=== PATIENT | female | born 1995 | race Caucasian/White ===

== ENCOUNTER 2021-11-29 12:07 | Outpatient (CLI) | payer OTHER, SELFPAY ==
--- NOTE | ~2021-11-29 | CT_ITS ---
EXAMINATION: CT brain wo con EXAM DATE: 11/29/2021 12:36 INDICATION: R51.9 -right sided Headache, unspecified . Left eye is blurry. TECHNIQUE: Spiral CT of the head was performed without contrast. Axial, coronal and sagittal images were reviewed. The dose-length product (DLP) for this examination was 605.33 mGy-cm. The exposure w as tailored according to patient size, and iterative reconstruction (ASIR) was used as additional dos e reduction technique. Comparison is made to prior examination from 06/06/2019. FINDINGS: There is no acute intraparenchymal hemorrhage. No evidence of intraparenchymal brain mass lesion. No evidence of acute infarction. There is no mass effect or midline shift. The ventricles are normal in size. There are no extra-axial collections. There are no acute calvarial fractures. T he orbits are unremarkable. Soft tissue is unremarkable. The visualized sinuses and mastoid air petar ls are well aerated. IMPRESSION: 1. Unremarkable head CT examination. Reviewed, dictated and finalized at location B. RIOR DECORATOR
== END 2021-11-29 12:08 | disposition home or self-care (01) ==
LOC: ANHIMG 12:12
PROVIDERS: PCP Family Medicine; Visit Provider Physician Assistant
DX: R51.9 Headache, unspecified (principal); H53.8 Other visual disturbances; R29.810 Facial weakness
CPT/HCPCS: 70450

== ENCOUNTER 2022-01-11 19:55 | Inpatient (IN) | payer OTHER, SELFPAY ==
[2022-01-11] VITALS (7 sets, daily range): BP systolic 111–130; BP diastolic 60–87; PULSE 78–109; RESP 16–20; TEMP 36.1; O2SAT 98–100
--- NOTE | ~2022-01-11 | US_ITS ---
EXAMINATION: US OB <=14 wk fetus w TV DATE: 01/11/2022 22:01 INDICATION: Abnormal vaginal bleeding. First trimester of . TECHNIQUE: Real-time transabdominal and transvaginal pelvic ultrasound was performed. COMPARISON: None. FINDINGS: TRANSABDOMINAL ULTRASOUND: The uterus measures 7.9 x 5.1 x 4.2 cm. TRANSVAGINAL ULTRASOUND: There is no visible intrauterine gestational sac. The endometrial complex me asures 3 mm in thickness. The right ovary measures 3.1 x 3.0 x 2.2 cm. The left ovary measures 3.7 x 3.2 x 2.4 cm. There is a 3.5 x 2.6 x 2.5 cm mass in the left adnexa. There is physiologic free fluid in the pelvis. IMPRESSION: 1. No visible intrauterine gestational sac, which may be normal in early . Spontaneous abor tion and ectopic are not excluded. Serial beta-hCGs are recommended. 2. 3.5 cm mass in left adnexa of uncertain etiology, which may be benign or malignant and could be no rmal bowel. Consider pelvis MRI. Reviewed, dictated and finalized at location A. IMPRESSION: 1. No visible intrauterine gestational sac, which may be normal in early pregn angelic. Spontaneous and ectopic are not excluded. Serial beta- hCGs are recommended. 2. 3.5 cm mass in left adnexa of uncertain etiology, which may be benign or mal ignant and could be normal bowel. Consider pelvis MRI.
--- NOTE | 2022-01-11 20:46 | ED.FEMALEGU ---
HPI - Female Genitourinary General Chief complaint: Vaginal Bleeding <Claudia Lee PA-C - Last Filed: 01/12/22 02:48> Stated complaint: Left pelvic pain, recent miscarry <Claudia Lee PA-C - Last Filed: 01/12/22 02:48> Time Seen by Provider: 01/11/22 20:04 <MANDEEP Barrera Last Filed: 01/12/22 02:48> History of Present Illness HPI Narrative: Patient is a 26-year-old G2, female with history of recent miscarriage who presents for evaluation of sharp left lower quadrant abdominal pain and vaginal bleeding. She states the pain developed suddenly today, is severe in nature, and is unprovoked by any positions or meals. Patient states she had a positive test at the end of November, followed by vaginal bleeding for several days in the beginning of December. She never had an ultrasound to confirm IUP. She is being followed by her ob doctor and getting serial hCG levels, she states that her hCG levels actually increased last week. Her vaginal bleeding stopped until today, when she developed spotting along with her abdominal pain. Additionally reports nausea and lightheadedness. She denies any changes in her stools, fevers, chills. <Claudia Lee PA-C - Last Filed: 01/12/22 02:48> Related Data Home medications: Home Medications Medication Instructions Recorded Confirmed Adults Multivitamin 1 tablet PO DAILY 01/12/22 01/12/22 ergocalciferol (vitamin D2) 1,250 mcg PO WEEKLY 01/12/22 01/12/22 ferrous sulfate 325 mg PO DAILY 01/12/22 01/12/22 <MANDEEP Barrera Last Filed: 01/12/22 02:48> Allergies/Adverse reactions: Allergies Allergy/AdvReac Type Severity Reaction Status Date / Time amoxicillin Allergy Unknown unk Verified 01/12/22 00:44 gluten Allergy Unknown unk Verified 01/12/22 00:44 <MANDEEP Barrera Last Filed: 01/12/22 02:48> Review of Systems Review of Systems: Gen: Denies fevers or chills Eyes: Denies eye pain or visual change ENT: Denies congestion Respiratory: Denies shortness of breath or cough CV: Denies chest pain or palpitations GI: Reports left lower quadrant pain and nausea. Denies emesis or diarrhea : Reports vaginal bleeding. Denies burning, urgency, frequency or hematuria Musculoskeletal: Denies back pain or muscle pain Neuro: Denies numbness, tingling, weakness or focal weakness Skin: Denies rash Except as documented, all other systems reviewed and negative <Claudia Lee PA-C - Last Filed: 01/12/22 02:48> [facility] Family History Family History: Family History Mother Cerebrovascular accident <Claudia Lee PA-C - Last Filed: 01/12/22 02:48> Social History Social History: Social History Years smoked: 2 Smoking status: Former smoker Tobacco type: cigarettes Alcohol intake: current Drinks per week: 0 Substance use: never Substance use type: does not use Gender identity (if verbalized by the patient): Female Spiritual care concerns: No <Claudia Lee PA-C - Last Filed: 01/12/22 02:48> Exam Narrative: APPEARANCE: Uncomfortable appearing. Head: normocephalic and atraumatic. EYES: PERRLA/EOMI, conjunctivae clear NOSE: No nasal drainage EARS: External ear normal in appearance THROAT: Oropharynx is clear. Mucous membranes are moist. NECK: Supple. No adenopathy, no masses. RESPIRATORY: Airway patent, respirations nonlabored. Clear to auscultation bilaterally, no rales, rhonchi, wheezing. CARDIOVASCULAR: Tachycardic. Regular rhythm without murmurs, rubs, or gallops. ABDOMINAL: Tender to palpation in left lower quadrant. No rebound tenderness or guarding. Normoactive bowel sounds. MUSCULOSKELETAL: Extremities are warm and well-perfused. Moves all extremities well. No edema. NEURO: Normal speech. No focal neurologic deficits. SKIN:
[2022-01-11 20:53] LABS: Hematocrit 35.9 % (37.0-47.0); Hemoglobin 10.7 g/dL (12.0-15.0)
[2022-01-11 21:51] LABS: Beta HCG Quantitative 196.35 mIU/ML
[2022-01-11] MEDS: ONDANSETRON INJ 4 MG/2 ML VIAL IV PUSH (22:00)
[2022-01-11] MEDS: MORPHINE SULFATE (*CRX) 4 MG/ML INJ IV PUSH (22:47)
--- NOTE | 2022-01-11 23:19 | PC.NURSE ---
Assumed care of pt at this time, report received from Theodora COHEN
[2022-01-11] MEDS: SODIUM CHLORIDE 0.9% IV 1,000 ML 999 ML IV CONT (23:52)
[2022-01-12] VITALS (9 sets, daily range): BP systolic 92–127; BP diastolic 48–73; PULSE 58–98; RESP 14–21; TEMP 36.2–36.4; O2SAT 94–100; BMI 37.6
--- NOTE | 2022-01-12 00:10 | PC.NURSE ---
Report to NOEL Portillo on medical.
--- NOTE | 2022-01-12 00:31 | ADMGEN ---
This patient, Hallie Lim, was admitted to Medical Room 248-. Patient/family oriented to hospital policies and general routines including ID bracelet, bed and alarms, visiting hours, pain management, procedures, bathroom and other care routines, personal items, smoking policy, room service/diet, and visiting hours. Information on how to activate the Rapid Response Team has been discussed. Patient/Family are encouraged to report perceived risks to care and to ask questions if they do not understand what they are told or what they should do.
[2022-01-12 01:47] LABS: SARS-CoV-2 RNA PCR Negative
[2022-01-12] MEDS: MORPHINE SULFATE (*CRX) 4 MG/ML INJ IV PUSH (02:26)
--- NOTE | 2022-01-12 06:42 | PM.IMHP ---
H&P: HPI History of Present Illness Date/Time: 01/12/22 06:42 26-year-old 2 para 1 seen through the ER with with expected to be a left-sided ectopic . She had had none normal rising HCGs consistent with suspected SAB. She however had left lower quadrant pain came through the ER an ultrasound reveals a possible left-sided ectopic . Chief Complaint: Left-sided pelvic pain Review of Systems Review of Systems: All systems reviewed & are unremarkable except as noted in HPI and below PMFSH Family History Family History Mother Cerebrovascular accident Social History Social History Years smoked: 2 Smoking status: Former smoker Tobacco type: cigarettes Alcohol intake: current Drinks per week: 0 Substance use: never Substance use type: does not use Gender identity (if verbalized by the patient): Female Spiritual care concerns: No Meds Home Medications and Allergies Home Medications Medication Instructions Recorded Confirmed Type Adults Multivitamin 1 tablet PO DAILY 01/12/22 01/12/22 History ergocalciferol (vitamin D2) 1,250 mcg PO WEEKLY 01/12/22 01/12/22 History ferrous sulfate 325 mg PO DAILY 01/12/22 01/12/22 History Allergies Allergy/AdvReac Type Severity Reaction Status Date / Time amoxicillin Allergy Unknown unk Verified 01/12/22 00:44 gluten Allergy Unknown unk Verified 01/12/22 00:44 Vital Signs Vital Signs - 24 hr 01/11/22 19:58 01/11/22 22:02 01/11/22 22:16 Temperature 97.0 F L Pulse Rate 109 H 78 86 Respiratory Rate 20 18 Blood Pressure 130/87 125/78 127/72 Pulse Oximetry 99 100 100 01/11/22 22:31 01/11/22 22:45 01/11/22 22:46 Temperature Pulse Rate 87 88 Respiratory Rate 18 16 Blood Pressure 119/69 114/60 Pulse Oximetry 100 99 99 01/11/22 23:54 01/12/22 00:38 01/12/22 03:40 Temperature 97.5 F L 97.3 F L Pulse Rate 91 98 76 Respiratory Rate 16 18 18 Blood Pressure 111/74 127/73 100/48 L Pulse Oximetry 98 99 100 Exam Const: General: no acute distress Eyes: General: appearance normal, both eyes and all related structures Neck: Neck: supple and no JVD Thyroid: thyroid normal Resp: Effort & Inspection: normal respiratory effort Auscultation: clear to auscultation bilaterally Cardio: Rate: regular rate Rhythm: regular rhythm GI: Inspection: non-distended GI Palp: Yes Soft to palpation, No Tenderness to palpation present (GI) and No Guarding due to palpation present (GI) Auscultation: normal bowel sounds : Speculum Exam - Vagina: normal appearance of the vagina Speculum Exam - Cervix: normal appearance of the cervix Bimanual exam- vagina & uterus: uterine shape normal Bimanual Exam- Adnexa, other: Adnexal mass present on the left Skin: General skin exam: no rashes or lesions noted Extrem: General: normal to inspection and no edema Psych: Mental Status: mental status grossly normal Affect: normal affect H&P: Results Labs Labs: Short CBC 01/11/22 Range/Units 20:48 Hgb 10.7 L (12.0-15.0) g/dL Hct 35.9 L (37.0-47.0) % Assessment and Plan Additional Plan Impression: Suspected left ectopic Plan: Laparoscopic left salpingostomy with possible left salpingectomy
--- NOTE | 2022-01-12 06:44 | WPDHPUPDATE1 ---
History and Physical Update Update Date/Time: 01/12/22 06:44 History and Physical has been reviewed, including an updated exam of the patient. There are NO changes in the patient's condition. Risks, benefits, and alternatives have been discussed and questions answered. Patient agrees to proceed with procedure.
--- NOTE | 2022-01-12 06:44 | WPDANESEPP ---
Anes - Eval Pre Procedure Procedure: Diagnostic Laparoscopy Date/Time: 01/12/22 06:44 Surgeon: Milly Ovalles Pre Op Diagnosis: Concern for Ectopic Patient Data Age: 26 Gender: F Height: 1.63 m Weight: 99.5 kg Last Vital Signs Temp 97.3 F L 01/12/22 03:40 Pulse 76 01/12/22 03:40 Resp 18 01/12/22 03:40 BP 100/48 L 01/12/22 03:40 Pulse Ox 100 01/12/22 03:40 Allergies Allergy/AdvReac Type Severity Reaction Status Date / Time amoxicillin Allergy Unknown unk Verified 01/12/22 00:44 gluten Allergy Unknown unk Verified 01/12/22 00:44 Home Medications Medication Instructions Recorded Confirmed Type Adults Multivitamin 1 tablet PO DAILY 01/12/22 01/12/22 History ergocalciferol (vitamin D2) 1,250 mcg PO WEEKLY 01/12/22 01/12/22 History ferrous sulfate 325 mg PO DAILY 01/12/22 01/12/22 History hydrocodone-acetaminophen 1 tablet PO Q4H PRN #30 tablet 01/12/22 Rx Laboratory Tests 01/11/22 01/11/22 01/11/22 20:48 20:48 21:19 Hgb 10.7 g/dL L g/dL (12.0-15.0) Hct 35.9 % L % (37.0-47.0) Beta HCG, Quant 196.35 mIU/ML mIU/ML SARS-CoV-2 RNA (RT-PCR) Blood Type A Positive Antibody Screen Negative Screen Not Reportable Baby's Blood Type Not Reportable Baby's BETTY Not Reportable Doses of RhIg Required 0 01/12/22 01:04 Hgb Hct Beta HCG, Quant SARS-CoV-2 RNA (RT-PCR) Negative Blood Type Antibody Screen Screen Baby's Blood Type Baby's BETTY Doses of RhIg Required Patient hx anesthesia problems: none Family hx anesthesia problems: none Results Review: All pre-operative results and documents have been reviewed as part of the pre-operative evaluation. [facility] Past Medical History Medical History Abnormal vaginal bleeding Anxiety History of bronchitis History of GI bleed History of smoking for 1-2 years HSV-2 (herpes simplex virus 2) infection Morbid obesity Surgical History Surgical History History of appendectomy Family History Family History Mother Cerebrovascular accident Social History Social History Years smoked: 2 Smoking status: Former smoker Tobacco type: cigarettes Alcohol intake: current Drinks per week: 0 Substance use: never Substance use type: does not use Gender identity (if verbalized by the patient): Female Spiritual care concerns: No Exam Day of Procedure 01/12/22 06:44 Patient weight: morbidly obese Heart: regular rate and rhythm Lungs: clear to auscultation Airway: Mallampati scale class II Neurological: alert and oriented
[2022-01-12] MEDS: LACTATED RINGERS 1,000 ML 30 ML IV CONT ×2 (07:15→08:52)
--- NOTE | 2022-01-12 07:32 | WPDANESEFPP ---
Anes - Eval Final PreProcedure Day of Procedure 01/12/22 07:32 Patient weight: obese Heart: regular rate and rhythm Lungs: clear to auscultation Airway: Mallampati scale class II Neurological: alert and oriented Last oral intake: >/= 8 hours ASA classification: II Emergent: no Anesthetic plan: proceed Anesthesia type and monitoring: general ETT and standard monitoring Results Review: All pre-operative results and documents have been reviewed as part of the pre-operative evaluation. Informed Consent: The patient's anesthetic plan and its attendant risks and benefits were discussed with the patient/family/POA. Questions were solicited and answers provided to the satisfaction of the patient/family/POA.
--- NOTE | 2022-01-12 08:24 | PM.DS ---
DS: Admitting Diagnosis Discharge Date 01/12/2022 Admitting Diagnosis Ectopic DS: Summary Hospital Course Hospital Course: The patient was admitted with abdominal pain and left-sided pelvic pain. She was admitted through the ER and ultrasound showed a possible ectopic however there was no free fluid. She was watched through the evening and her pain continued. She underwent laparoscopic left salpingectomy and the a.m. of 01/12/2022. Please see the operative report for full details. Her hospital course was unremarkable. She remained afebrile. She was up, voiding without difficulty, ambulating, eating a regular diet and generally without complaints. Time Spent with Patient Time attestation: Total time spent providing and/or coordinating discharge services: Exam Const: General: no acute distress Eyes: General: appearance normal, both eyes and all related structures Neck: Neck: supple and no JVD Thyroid: thyroid normal Resp: Effort & Inspection: normal respiratory effort Auscultation: clear to auscultation bilaterally Cardio: Rate: regular rate Rhythm: regular rhythm GI: Inspection: non-distended GI Palp: Yes Soft to palpation, No Tenderness to palpation present (GI) and No Guarding due to palpation present (GI) Auscultation: normal bowel sounds : General: Yes bladder normal to palpation External Female Exam: normal external appearance Speculum Exam - Vagina: normal vaginal discharge and No vaginal bleeding Speculum Exam - Cervix: nontender Bimanual exam- vagina & uterus: bladder normal to palpation and No Cervical tenderness present OB/external & speculum: No vaginal bleeding Skin: General skin exam: no rashes or lesions noted Extrem: General: normal to inspection and no edema Psych: Mental Status: mental status grossly normal Affect: normal affect DS: Data Data Completed and Pending Pending studies at discharge: Pending at discharge 01/12/22 08:09 Surgical [PTH] Routine Labs on day of discharge: Labs from last 24 hours 01/12/22 01/11/22 01/11/22 01:04 21:19 20:48 Hgb Hct Beta HCG, Quant 196.35 SARS-CoV-2 RNA (RT-PCR) Negative Blood Type A Positive Antibody Screen Negative Screen Not Reportable Baby's Blood Type Not Reportable Baby's BETTY Not Reportable Doses of RhIg Required 0 01/11/22 20:48 Hgb 10.7 L Hct 35.9 L Beta HCG, Quant SARS-CoV-2 RNA (RT-PCR) Blood Type Antibody Screen Screen Baby's Blood Type Baby's BETTY Doses of RhIg Required Discharge Plan Discharge Attending physician on discharge: Yonny Kam Discharging Clinician: Yonny Kam Patient Disposition: Home, Self-Care Activity: may shower, may drive after 2 weeks and pelvic rest Diet: heart healthy Wound Care Instructions: follow printed instructions Patient Instructions: Antibiotic Form Stand Alone Forms: General Discharge Information Follow-up/Referrals: Yonny Kam MD [Physician] - Discharge Medications: New hydrocodone-acetaminophen 5-325 mg tablet 1 tablet PO Q4H PRN (Reason: pain) Qty: 30 RF: 0 No Action Adults Multivitamin 1 tablet PO DAILY RF: 0 ferrous sulfate 325 mg (65 mg iron) tablet 325 mg PO DAILY RF: 0 ergocalciferol (vitamin D2) 1,250 mcg (50,000 unit) capsule 1,250 mcg PO WEEKLY RF: 0 Date of admission: 01/11/22 23:22 Primary Care Provider: Manas Reza Admitting Provider: Yonny Kam Attending physician on admission: Yonny Kam Condition: Stable
--- NOTE | 2022-01-12 08:26 | W.PM.PROC2 ---
Procedure Note - Detailed Date of Procedure 01/12/22 Pre-op Diagnosis Concern for Ectopic Post-op Diagnosis Same Procedure Performed Laparoscopic left salpingectomy Surgeon Yonny Ovalles MD Anesthesia General Indications This is a 26-year-old 2 para 1 who was admitted through the ER with suspected ectopic . Findings Normal-appearing uterus and ovaries bilaterally. The tube on the left at the distal half toward the fimbriated in contained an ectopic . About 50cc of clots were seen in the pelvis as well. Description of Procedure The patient is prepped draped in the normal sterile fashion placed in the dorsal lithotomy position. Under excellent general trach anesthesia weighted speculum placed in posterior fornix vagina. Anterior lip of the cervix grasped with a single-tooth tenaculum the Villegas's cannula inserted the cervix. These were attached to the single-tooth tenaculum to be used for uterine manipulation. Bladder was then emptied of [id number] of clear urine. The weighted speculum was removed the gloves were changed. An infraumbilical incision made the Veress needle passed in the abdomen. Abdomen filled with CO2 gas [id number]. The 5mm trocar advanced under direct visualization assuring no injury. The patient was placed in Trendelenburg and a suprapubic incision made. The 5mm trocar advanced under direct visualization assuring no injury. The left lower quadrant incision made the 5mm trocar advanced under direct visualization assuring no injury. The above findings were seen then the clots were suctioned away. In the distal half of the left fallopian tube appeared to be the ectopic . The end of the tube was grasped and a linear incision made with monopolar cautery the exposing the ectopic . This was picked out and sent for pathology. Irrigation was undertaken no clear the tube appeared dry after irrigating. No other abnormalities were seen in the lower sites removed. The gas removed from the abdomen the upper sites removed. The incisions closed with 4-0 Monocryl and glue. The patient went to recovery in satisfactory condition. All sponge, needle, instrument counts were correct. There were no immediate complications Estimated Blood Loss 25 Urine Output 500 Drains No Packing No Pathology Yes Complications No immediate complications Condition Stable Disposition PACU
[2022-01-12] MEDS: fentaNYL CITRATE INJ (*CRX) 100 MCG/2 ML VIAL 25 MCG IV PUSH ×4 (08:36→09:13)
[2022-01-12] MEDS: HYDROcodone/acetaminophen (*CRX) 5-325 MG TABLET 1 TAB PO ×2 (10:00→13:58)
[2022-01-13 12:15] LABS: Rapid Plasma Reagin Non-Reactive (NonReactive)
--- NOTE | 2022-01-16 07:44 | P.DS_ITS ---
DS: Admitting Diagnosis Discharge Date 01/12/22 Admitting Diagnosis Ectopic DS: Summary Hospital Course Hospital Course: the patient was admitted with suspected ectopic . She underwent unilateral salpingotomy. Her hospital course was unremarkable. She remained afebrile. She was up, voiding without difficulty, ambulating, generally without lints.comp Time Spent with Patient Time attestation: Total time spent providing and/or coordinating discharge services: Exam Const: General: no acute distress Eyes: General: appearance normal, both eyes and all related structures Neck: Neck: supple and no JVD Thyroid: thyroid normal Resp: Effort & Inspection: normal respiratory effort Auscultation: clear to auscultation bilaterally Cardio: Rate: regular rate Rhythm: regular rhythm GI: Inspection: non-distended GI Palp: Yes Soft to palpation, No Tenderness to palpation present (GI) and No Guarding due to palpation present (GI) Auscultation: normal bowel sounds : General: Yes bladder normal to palpation External Female Exam: normal external appearance Speculum Exam - Vagina: normal vaginal discharge and No vaginal bleeding Speculum Exam - Cervix: nontender Bimanual exam- vagina & uterus: bladder normal to palpation and No Cervical tenderness present OB/e xternal & speculum: No vaginal bleeding Skin: General skin exam: no rashes or lesions noted Extrem: General: normal to inspection and no edema Psych: Mental Status: mental status grossly normal Affect: normal affect DS: Data Data Completed and Pending Completed studies during hospitalization: Pending at discharge 01/12/22 08:09 Surgical [PTH] Routine Discharge Plan Discharge Attending physician on discharge: Yonny Kam Consulting providers: Claudia Lee ; Juanito Paredes V. Discharging Clinician: Yonny Kam Patient Disposition: Home, Self-Care Activity: may shower, may drive after 2 weeks and pelvic rest Diet: heart healthy Wound Care Instructions: follow printed instructions Patient Instructions: Antibiotic Form Stand Alone Forms: General Discharge Information, Work/School Release IP Follow-up/Referrals: Yonny Kam MD [Physician] - Discharge Medications: New hydrocodone-acetaminophen 5-325 mg tablet 1 tablet PO Q4H PRN (Reason: pain) Qty: 30 RF: 0 Continued Adults Multivitamin 1 tablet PO DAILY RF: 0 ferrous sulfate 325 mg (65 mg iron) tablet 325 mg PO DAILY RF: 0 ergocalciferol (vitamin D2) 1,250 mcg (50,000 unit) capsule 1,250 mcg PO WEEKLY RF: 0 Date of admission: 01/11/22 23:22 Primary Care Provider: Manas Reza Admitting Provider: Yonny Kam Attending physician on admission: Yonny Kam Condition: Stable
== END 2022-01-12 15:00 | disposition home or self-care (01) | DRG 819 ==
LOC: ANHED 20:15 → ANH2MED 23:37
PROVIDERS: Physician Assistant; Admitting Provider Obstetrics & Gynecology; Emergency Provider Emergency Medicine; PCP Family Medicine; Visit Provider Obstetrics & Gynecology
PROC: 10T24ZZ Resection of Products of Conception, Ectopic, Percutaneous Endoscopic Approach (ICD-10-PCS; CPT 49320; principal; 2022-01-12 08:00)
DX: O00.102 Left tubal pregnancy without intrauterine pregnancy (principal); Z20.822 Contact with and (suspected) exposure to COVID-19; E66.01 Morbid (severe) obesity due to excess calories; Z68.37 Body mass index [BMI] 37.0-37.9, adult; Z90.49 Acquired absence of other specified parts of digestive tract; Z87.891 Personal history of nicotine dependence
CPT/HCPCS: 36415; 76801; 76817; 84702; 85014; 85018; 85461; 86592; 88305; 96365; 96375; 99285; A9270; C9803; J0131; J0330; J2250; J2270; J2405; J2704; J2710; J3010; J7030; J7120; U0003; U0005

== ENCOUNTER 2022-01-27 16:36 | Outpatient (CLI) | payer OTHER, SELFPAY ==
[2022-01-27 17:22] LABS: Beta HCG Quantitative 48.34 mIU/ML
== END 2022-01-27 16:37 | disposition home or self-care (01) ==
LOC: ANHLAB 16:39
PROVIDERS: PCP Family Medicine; Visit Provider Obstetrics & Gynecology
DX: O00.90 Unspecified ectopic pregnancy without intrauterine pregnancy (principal)
CPT/HCPCS: 36415; 84702

== ENCOUNTER 2023-01-20 08:30 | Outpatient (CLI) | payer BC, SELFPAY ==
[2023-01-20 08:58] LABS: Hematocrit 40.6 % (37.0-47.0); Hemoglobin 12.7 g/dL (12.0-15.0)
== END 2023-01-20 08:31 | disposition home or self-care (01) ==
LOC: ANHSURGERY 08:36
PROVIDERS: Anesthesiology; PCP Family Medicine; Visit Provider Obstetrics & Gynecology
DX: Z01.812 Encounter for preprocedural laboratory examination (principal); R10.2 Pelvic and perineal pain; D64.9 Anemia, unspecified
CPT/HCPCS: 36415; 85014; 85018; 86850; 86900; 86901

== ENCOUNTER 2023-01-23 00:28 | Day surgery (SDC) | payer BC, SELFPAY ==
[2023-01-15 11:43] VITALS: BMI 37.8
--- NOTE | 2023-01-15 11:50 | PC.NURSE ---
Report to the Outpatient Waiting Room, entrance under the green pavilion located off [facility], at time 1:00 on date 01/23/23. Planned Procedure Time: 3:00. Time changes happen often and if your time is changed the preop area will call you the afternoon before. - You and your visitor will be asked to self-screen and do not enter if you have any COVID symptoms. - A mask is optional within the hospital at this time. Patients may have clear liquids (water, carbonated beverages, clear teas, apple juice) until 3 hours prior to surgery (12:00) with a maximum of 20 ounces. - No food from midnight until time of surgery Take the following medications with a SIP of water the morning of surgery: NONE DO NOT STOP ANY OF YOUR OTHER PRESCRIPTION MEDICATIONS PRIOR TO SURGERY EXCEPT THE FOLLOWING Medications to discontinue per physician: VITAMINS Date to take last dose: 01/19/23 Please no make-up, nail azeri, hairspray, perfume, deodorant, or body powder the day of surgery. No jewelry (including any body piercings) or valuables the day of surgery, leave them at home. Please take a shower or bath the night before, or the morning of, surgery with an antibacterial soap. Wear comfortable, loose fitting clothing. - Jewelry must be removed prior to entering the operating room. Rings and piercings that are not removed may be cut off. - The hospital will not accept responsibility for valuables. - Please leave all valuables, including medications, at home the day of surgery. If you are going home after surgery, a licensed flag car driver must drive you home. - NO public transportation without another adult if you receive anesthesia. - We recommend that an adult stay with you for 24 hours following discharge. - We also recommend that you do not drive, make important decision, drink alcoholic beverages, or take any drugs that were not prescribed by your health care provider for at least 24 hours after your discharge time. Follow any additional instructions given to you from your surgeon. If you or anyone in your household have experienced Covid symptoms in the past week, please notify your surgeon or the nurse liaison at the phone number below for possible testing. Telephone instructions given to PT Ned STACK and asked if any additional questions and then verbalized understanding. Patient advised to call surgeon office or pre surgery nurse liaison [phone] if any additional questions.
--- NOTE | 2023-01-20 07:51 | PM.IMHP ---
H&P: HPI History of Present Illness Date/Time: 01/20/23 07:51 Chief Complaint: Pelvic pain Narrative: 27-year-old female admitted for laparoscopy secondary to chronic and severe pelvic pain. Ultrasound was unhelpful. She has negative cultures as well. Risks and benefits of the procedure reviewed including but not exclusive of , aspiration pneumonia, bleeding, transfusion, perforation injury to bowel, bladder, ureters, or other internal organs with need for open laparotomy. She received the ACOG handout entitled laparoscopy. She had all questions answered. She asked to proceed PMFSH Past Medical History Medical History Abnormal vaginal bleeding Anxiety History of bronchitis History of GI bleed History of smoking for 1-2 years HSV-2 (herpes simplex virus 2) infection Morbid obesity Surgical History Surgical History History of appendectomy Family History Family History Mother Cerebrovascular accident Social History Social History Years smoked: 0.5 Smoking status: Former smoker Tobacco type: cigarettes Smoking end date: 09/28/17 Alcohol intake: current Drinks per week: 0 Alcohol use details: VERY RARE Substance use: never Substance use type: does not use Living arrangements: with family Occupation/Education: occupation Gender identity (if verbalized by the patient): Female Spiritual care concerns: No Meds Home Medications and Allergies Home Medications Medication Instructions Recorded Confirmed Type melatonin 10 mg chewable tablet 10 mg PO HS 01/15/23 01/15/23 History Allergies Allergy/AdvReac Type Severity Reaction Status Date / Time amoxicillin Allergy Unknown Vomiting Verified 01/15/23 11:42 gluten Allergy Unknown Other Verified 01/15/23 11:42 Exam Const: General: cooperative, healthy appearing and comfortable Nutritional Appearance: average body habitus Orientation/consciousness: oriented to person, oriented to place and oriented to time HENMT: Head: normal to inspection Resp: Effort & Inspection: normal respiratory effort Cardio: Rate: regular rate Rhythm: regular rhythm Heart sounds: S1 normal heart sound present and S2 normal heart sound present GI: Inspection: normal to inspection : External Female Exam: normal external appearance Speculum Exam - Vagina: normal appearance of the vagina Speculum Exam - Cervix: normal appearance of the cervix Bimanual exam- vagina & uterus: uterine size normal and Uterine tenderness Bimanual Exam- Adnexa, other: tender Assessment and Plan Assessment and plan (1) Pelvic pain: Code(s): R10.2 - Pelvic and perineal pain Status: Acute Plan Diagnostic laparoscopy
[2023-01-23] VITALS (8 sets, daily range): BP systolic 101–123; BP diastolic 51–77; PULSE 58–100; RESP 12–18; TEMP 36.3–36.4; O2SAT 97–100; BMI 36.8
--- NOTE | 2023-01-23 06:02 | WPDHPUPDATE1 ---
History and Physical Update Update Date/Time: 01/23/23 06:02 History and Physical has been reviewed, including an updated exam of the patient. There are NO changes in the patient's condition. Risks, benefits, and alternatives have been discussed and questions answered. Patient agrees to proceed with procedure.
[2023-01-23] MEDS: LACTATED RINGERS 1,000 ML 30 ML IV CONT (13:05)
[2023-01-23] MEDS: KETOROLAC 15 MG/ML VIAL (*BKC) IV PUSH (13:13)
[2023-01-23] MEDS: ACETAMINOPHEN 500 MG TABLET 1000 MG PO (13:13)
--- NOTE | 2023-01-23 13:22 | WPDHPUPDATE1 ---
History and Physical Update Update Date/Time: 01/23/23 13:22 History and Physical has been reviewed, including an updated exam of the patient. There are NO changes in the patient's condition. Risks, benefits, and alternatives have been discussed and questions answered. Patient agrees to proceed with procedure. ad possible destruction of lesions
--- NOTE | 2023-01-23 14:09 | P.PNAN_ITS ---
Anes - Initial Pre Proc Eval Procedure: Operation Date: 01/23/23 14:30 Proposed Procedures p Diagnostic Laparoscopy with Possible Destruction of Lesion - Yonny Ovalles MD Date/Time: 01/23/23 14:09 Surgeon: Yonny Ovalles MD Pre Op Diagnosis: pelvic pain Patient Data Age: 27 Gender: F Height: 1.63 m Weight: 99.8 kg Allergies Allergy/AdvReac Type Severity Reaction Status Date / Time amoxicillin Allergy Unknown Vomiting Verified 01/23/23 12:51 gluten Allergy Unknown Other Verified 01/23/23 12:51 Home Medications Medication Instructions Recorded Confirmed Type melatonin 10 mg chewable tablet 10 mg PO HS 01/15/23 01/15/23 History hydrocodone 5 mg-acetaminophen 325 1 tablet PO Q4H PRN pain #20 tabs 01/23/23 Rx mg tablet Patient hx anesthesia problems: none Family hx anesthesia problems: none Results Review: All pre-operative results and documents have been reviewed as part of the pre- operative evaluation. [facility] Past Medical History Medical History Abnormal vaginal bleeding Anxiety History of bronchitis History of GI bleed History of smoking for 1-2 years HSV-2 (herpes simplex virus 2) infection Morbid obesity Surgical History Surgical History History of appendectomy Family History Family History Mother Cerebrovascular accident Social History Social History Years smoked: 0.5 Smoking status: Former smoker Tobacco type: cigarettes Smoking end date: 09/28/17 Alcohol intake: current Drinks per week: 0 Alcohol use details: VERY RARE Substance use: never Substance use type: does not use Living arrangements: with family Occupation/Education: occupation Gender identity (if verbalized by the patient): Female Spiritual care concerns: No Anes - Eval Final PreProcedure Day of Procedure 01/23/23 14:09 Patient weight: obese Heart: regular rate and rhythm Lungs: clear to auscultation Airway: Mallampati scale class II Neurological: alert and oriented Last oral intake: >/= 8 hours ASA classification: II Emergent: no Anesthetic plan: proceed Anesthesia type and monitoring: general ETT and standard monitoring Results Review: All pre-operative results and documents have been reviewed as part of the pre- operative evaluation. Informed Consent: The patient's anesthetic plan and its attendant risks and benefits were discussed with the patient/family/POA. Questions were solicited and answers provided to the satisfaction of the patient/family/POA.
--- NOTE | 2023-01-23 15:21 | P.OP_ITS ---
Procedure Note - Detailed Date of Procedure 01/23/23 Pre-op Diagnosis pelvic pain Post-op Diagnosis Other ( endometriosis) Procedure Performed laparoscopic destruction of endometriosis Surgeon Yonny Ovalles MD Anesthesia General Indications this 27-year-old female with pelvic pain Findings normal-appearing uterus ovaries and tubes. Two small blistered spots of endometriosis along left and right uterosacral Description of Procedure patient was prepped draped in normal sterile fashion placed in dorsal lithotomy position. Under excellent general trach anesthesia weighted speculum placed in posterior fornix vagina. Anterior lip of the cervix grasped with single-tooth tenaculum. Villegas's cannula inserted the cervix and attached to the single- tooth. This was to be used later later for uterine manipulation. After emptying the bladder clear urine the weighted speculum was removed and gloves were changed. Supraumbilical incision made the Veress needle passed in the abdomen. Abdomen filled with CO2 gas to 15mm Hg. 5Mm trocar advanced in the abdomen. Downside visualized no injury seen. Gas reattached the patient placed in Trendelenburg. Suprapubic incision made the 5mm trocar advanced under direct visualization assuring no injury. Visualization of the pelvis showed no abnormality short of the small areas of endometriosis. These were cauterized at 35 w per 2nd with monopolar cautery. Irrigation undertaken and photo documentation undertaken. The lower site removed. The gas removed from the abdomen. The upper site removed. The incisions closed with 4-0 Monocryl and glue. Patient went to recovery in satisfactory condition. All sponge, needle, instrument counts were correct. There were no immediate complications Estimated Blood Loss 5 Drains No Packing No Pathology None sent Complications No immediate complications Condition Stable Disposition PACU
[2023-01-23] MEDS: fentaNYL CITRATE INJ (*CRX) 100 MCG/2 ML VIAL 25 MCG IV PUSH ×4 (15:49→15:58)
[2023-01-23] MEDS: oxyCODONE HCL (*CRX) 5 MG TAB IR PO (16:41)
== END 2023-01-23 17:30 | disposition home or self-care (01) ==
PROVIDERS: PCP Family Medicine; Visit Provider Obstetrics & Gynecology
PROC: (CPT 49320; principal; 2023-01-23 14:30)
DX: N80.3C3 Endometriosis of bilateral uterosacral ligament(s), unspecified depth (principal); R10.2 Pelvic and perineal pain; B00.9 Herpesviral infection, unspecified; Z87.891 Personal history of nicotine dependence; E66.9 Obesity, unspecified; Z68.36 Body mass index [BMI] 36.0-36.9, adult
CPT/HCPCS: 58662; A9270; J1100; J1885; J2001; J2250; J2405; J2704; J2710; J3010; J7120

== ENCOUNTER 2023-10-30 01:25 | Day surgery (SDC) | payer BC, SELFPAY ==
[2023-10-29 09:20] VITALS: BMI 41.2
--- NOTE | 2023-10-29 09:25 | PC.NURSE ---
Report to the Outpatient Waiting Room, entrance under the green pavilion located off [facility], at time 1330 on date 10/30/23. Planned Procedure Time: 1530. Time changes happen often and if your time is changed the preop area will call you the afternoon before. - You and your visitor will be asked to self-screen and do not enter if you have any COVID symptoms. - A mask is optional within the hospital at this time. Patients may have clear liquids (water, carbonated beverages, clear teas, apple juice) until 3 hours prior to surgery with a maximum of 20 ounces. - No food from midnight until time of surgery Take the following medications with a SIP of water the morning of surgery: NONE DO NOT STOP ANY OF YOUR OTHER PRESCRIPTION MEDICATIONS PRIOR TO SURGERY ?EXCEPT THE FOLLOWING Medications to discontinue per physician: N/A Date to take last dose: N/A Please no make-up, nail estonian, hairspray, perfume, deodorant, or body powder the day of surgery. No jewelry (including any body piercings) or valuables the day of surgery, leave them at home. Please take a shower or bath the night before, or the morning of, surgery with an antibacterial soap. Wear comfortable, loose fitting clothing. - Jewelry must be removed prior to entering the operating room. Rings and piercings that are not removed may be cut off. - The hospital will not accept responsibility for valuables. - Please leave all valuables, including medications, at home the day of surgery. If you are going home after surgery, a licensed entry driver operator must drive you home. - NO public transportation without another adult if you receive anesthesia. - We recommend that an adult stay with you for 24 hours following discharge. - We also recommend that you do not drive, make important decision, drink alcoholic beverages, or take any drugs that were not prescribed by your health care provider for at least 24 hours after your discharge time. Follow any additional instructions given to you from your surgeon. If you or anyone in your household have experienced Covid symptoms in the past week, please notify your surgeon or the nurse liaison at the phone number below for possible testing. Telephone instructions given to JULIETA STACK and asked if any additional questions and then verbalized understanding. Patient advised to call surgeon office or pre surgery nurse liaison [phone] if any additional questions.
--- NOTE | 2023-10-29 10:53 | P.HP_ITS ---
H&P: HPI History of Present Illness Date/Time: 10/29/23 10:53 Chief Complaint: Bleeding for 2 months Narrative: 27-year-old female para been bleeding for 2 months. She has heavier bleeding which is increased she has laparoscopic history of endometriosis diagnosed a year ago. She continues to bleed irregularly. In this this bleeding is, since August 30. Risks and benefits reviewed of the procedure. She received the ACOG handouts entitled hysteroscopy as well as dilatation curettage. She had all questions answered and asked to proceed PMFSH Past Medical History Medical History Abnormal vaginal bleeding Anxiety History of bronchitis History of GI bleed History of smoking for 1-2 years HSV-2 (herpes simplex virus 2) infection Morbid obesity Surgical History Surgical History History of appendectomy Family History Family History Mother Cerebrovascular accident Social History Social History Years smoked: 0.5 Smoking status: Former smoker Tobacco type: cigarettes Smoking end date: 09/28/15 Alcohol intake: current Drinks per week: 0 Alcohol use details: VERY RARE Substance use: never Substance use type: does not use Living arrangements: with family Occupation/Education: occupation Gender identity (if verbalized by the patient): Female Spiritual care concerns: No Meds Home Medications and Allergies Home Medications Medication Instructions Recorded Confirmed Type medroxyprogesterone 10 mg tablet 10 mg PO DAILY 10/29/23 10/29/23 History Allergies Allergy/AdvReac Type Severity Reaction Status Date / Time amoxicillin Allergy Unknown Vomiting Verified 10/29/23 09:19 gluten Allergy Unknown Other Verified 10/29/23 09:19 Exam Const: General: cooperative, healthy appearing and comfortable Nutritional Appearance: average body habitus Orientation/consciousness: oriented to person, oriented to place and oriented to time Resp: Effort & Inspection: normal respiratory effort Cardio: Rate: regular rate Rhythm: regular rhythm Heart sounds: S1 nor mal heart sound present and S2 normal heart sound present GI: Inspection: normal to inspection : External Female Exam: normal external appearance Speculum Exam - Vagina: normal appearance of the vagina and vaginal bleeding Speculum Exam - Cervix: normal appearance of the cervix Bimanual exam- vagina & uterus: non- tender Bimanual Exam- Adnexa, other: normal adnexae Assessment and Plan Assessment and plan (1) Vaginal bleeding: Code(s): N93.9 - Abnormal uterine and vaginal bleeding, unspecified Status: Acute Plan Hysteroscopy/dilatation and curettage
--- NOTE | 2023-10-30 06:36 | WPDHPUPDATE1 ---
History and Physical Update Update Date/Time: 10/30/23 06:36 History and Physical has been reviewed, including an updated exam of the patient. There are NO changes in the patient's condition. Risks, benefits, and alternatives have been discussed and questions answered. Patient agrees to proceed with procedure.
[2023-10-30] MEDS: LACTATED RINGERS 1,000 ML 30 ML IV CONT ×2 (11:40→13:54)
[2023-10-30] MEDS: ACETAMINOPHEN 500 MG TABLET 1000 MG PO (12:03)
[2023-10-30 12:06] LABS: Hematocrit 37.4 % (37.0-47.0); Hemoglobin 11.6 g/dL (12.0-15.0)
[2023-10-30 12:09] VITALS: BP 114/75; PULSE 101; RESP 16; TEMP 37.1; O2SAT 100; BMI 40.2
--- NOTE | 2023-10-30 12:52 | P.PNAN_ITS ---
Anes - Initial Pre Proc Eval Procedure: Operation Date: 10/30/23 15:30 Proposed Procedures p Hysteroscopy Dilation and Curettage - Yonny Ovalles MD Date/Time: 10/30/23 12:52 Surgeon: Yonny Ovalles MD Pre Op Diagnosis: Excessive Bleeding, Dysmenorrhea Patient Data Age: 27 Gender: F Height: 1.63 m Weight: 106.3 kg Last Vital Signs Temp 37.1 C 10/30/23 12:09 Pulse 101 H 10/30/23 12:09 Resp 16 10/30/23 12:09 BP 114/75 10/30/23 12:09 Pulse Ox 100 10/30/23 12:09 O2 Del Method Room Air 10/30/23 12:09 Allergies Allergy/AdvReac Type Severity Reaction Status Date / Time amoxicillin Allergy Unknown Vomiting Verified 10/29/23 09:19 gluten Allergy Unknown Other Verified 10/29/23 09:19 Home Medications Medication Instructions Recorded Confirmed Type medroxyprogesterone 10 mg tablet 10 mg PO DAILY 10/29/23 10/30/23 History hydrocodone 5 mg-acetaminophen 325 1 tablet PO Q4H PRN pain #14 tabs 10/30/23 Rx mg tablet Laboratory Tests 10/30/23 11:50 Hgb 11.6 L g/dL (12.0-15.0) Hct 37.4 % (37.0-47.0) Patient hx anesthesia problems: none Family hx anesthesia problems: none Results Review: All pre-operative results and documents have been reviewed as part of the pre- operative evaluation. [facility] Past Medical History Medical History Abnormal vaginal bleeding Anxiety History of bronchitis History of GI bleed History of smoking for 1-2 years HSV-2 (herpes simplex virus 2) infection Morbid obesity Surgical History Surgical History History of appendectomy Family History Family History Mother Cerebrovascular accident Social History Social History Years smoked: 0.5 Smoking status: Former smoker Tobacco type: cigarettes Smoking end date: 09/28/15 Alcohol intake: current Drinks per week: 0 Alcohol use details: VERY RARE Substance use: never Substance use type: does not use Living arrangements: with family Occupation/Education: occupation Gender identity (if verbalized by the patient): Female Spiritual care concerns: No Anes - Eval Final PreProcedure Day of Procedure 10/30/23 12:52 Patient weight: morbidly obese Heart: regular rate and rhythm Lungs: clear to auscultation Airway: Mallampati scale class II Neurological: alert and oriented Last oral intake: >/= 8 hours ASA classification: III Emergent: no Anesthetic plan: proceed Anesthesia type and monitoring: general GIVS and standard monitoring Results Review: All pre-operative results and documents have been reviewed as part of the pre- operative evaluation. Informed Consent: The patient's anesthetic plan and its attendant risks and benefits were discussed with the patient/family/POA. Questions were solicited and answers provided to the satisfaction of the patient/family/POA.
[2023-10-30 13:54] VITALS: BP 118/82; PULSE 79; RESP 14; O2SAT 100
[2023-10-30] MEDS: LIDOCAINE HCL 1% LOCAL INJ 20 ML VIAL 10 ML INFILTRATE (13:57)
--- NOTE | 2023-10-30 13:57 | P.OP_ITS ---
Procedure Note - Detailed Date of Procedure 10/30/23 Pre-op Diagnosis Excessive Bleeding, Dysmenorrhea Post-op Diagnosis Same Procedure Performed Hysteroscopy / dilatation curettage Surgeon Yonny Ovalles MD Anesthesia MAC and Local Indications 27-year-old female with 2 months of continued bleeding refractory to medical therapy Findings thickened irregular endometrial tissue Description of Procedure patient was prepped and draped in the normal sterile fashion placed in the dorsal lithotomy position. Under excellent IV sedation weighted speculum placed in posterior fornix vagina. Anterior lip of the cervix grasped with a single- tooth tenaculum. 2.5cc of 1% xylocaine anesthesia placed at 2, 4, 8, 10:00 a.m. of the cervix. Uterus sounded to 8cm. Serial dilatation with fragmented dilators performed followed by passage of the 5mm visualizing of the dye hysteroscope. Thick irregular endometrial tissue was seen. Each fallopian tube os could be seen but no evidence of polyp. Uterus was then scraped over the entire 360? until good grating sound was heard. Instruments withdrawn blood loss estimated at5cc. All sponge, needle, instrument counts were correct. There were no immediate complications Estimated Blood Loss 5 Drains No Packing No Pathology Yes Complications No immediate complications Condition Stable Disposition PACU
[2023-10-30] MEDS: fentaNYL CITRATE INJ (*CRX) 100 MCG/2 ML VIAL 25 MCG IV PUSH ×4 (14:19→14:28)
[2023-10-30 14:20] VITALS: BP 110/71; PULSE 69; RESP 16; O2SAT 96
[2023-10-30 14:30] VITALS: BP 105/65; PULSE 63; RESP 16; O2SAT 94
[2023-10-30 15:00] VITALS: BP 102/63; PULSE 53; RESP 17; O2SAT 100
== END 2023-10-30 15:16 | disposition home or self-care (01) ==
PROVIDERS: PCP Family Medicine; Visit Provider Obstetrics & Gynecology
PROC: 0U5B8ZZ Destruction of Endometrium, Via Natural or Artificial Opening Endoscopic (ICD-10-PCS; CPT 58563; principal; 2023-10-30 15:30)
DX: N93.9 Abnormal uterine and vaginal bleeding, unspecified (principal); N94.6 Dysmenorrhea, unspecified; B00.9 Herpesviral infection, unspecified; Z87.891 Personal history of nicotine dependence; E66.01 Morbid (severe) obesity due to excess calories; Z68.41 Body mass index [BMI] 40.0-44.9, adult
CPT/HCPCS: 58558; 36415; 85014; 85018; 88305; A9270; J2250; J2405; J2704; J3010; J7120

== ENCOUNTER 2025-01-13 11:07 | Outpatient (CLI) | payer BC, SELFPAY ==
--- OUTSIDE RECORDS SUMMARY | 2025-01-13 11:19 | XMS_ITS | Clinical Summary ---
Author Organization [facility] Address [address] [place] [address] Care Team Providers Care Foil Wrapper Name Role Phone Manas Reza MD Primary Care Provider Allergies Active Allergy Reactions Criticality Noted Date Comments Amoxicillin Rash Medium 05/15/2021 Amoxicillin-Pot Clavulanate Rash Medium 05/15/2021 Gluten Other (See comments) Low 05/23/2024 Celiac disease Medications cholecalciferol (VITAMIN D-3) 25 mcg (1,000 unit) tabletIndication s:Vitamin D Deficiency Take 1 tablet (1,000 Units total) by mouth daily 30 tablet 06/01/2024 5 Active folic acid (FOLVITE) 1 mg tabletIndication s:Folate Deficiency Take 1 tablet (1 mg total) by mouth daily 30 tablet 06/01/2024 5 Active Active Problems Problem Noted Date Diagnosed Date NAFLD (nonalcoholic fatty liver disease) 025 Class 3 severe obesity due t o excess calories with serious comorbidity and body mass index (BMI) of 40.0 to 44.9 in adult 10/14/2024 Elevated LFTs 06/10/2024 Allergic rhinitis 07/14/2023 Allergic rhinitis due to pollen 07/14/2023 Angioneurotic edema 07/14/2023 Dyspnea 07/14/2023 Idiopathic urticaria 07/14/2023 Dietary counseling 07/16/2021 Gluten free diet 07/16/2021 Chronic diarrhea 05/23/2021 Microcytic anemia 05/22/2021 Assessment & Plan (05/22/2021 10:42 AM CDT): Baseline since at least 2013 is 9-10; decrease from admission was due to initial hemoconcentration. Likely chronic Fe deficient anemia due to celiac disease and associated intermittent GIB over the years -Start ferrous sulfate Abdominal pain 05/21/2021 Assessment & Plan (05/22/2021 10:30 AM CDT): P/w N/V and diarrhea. CT A/P with fluid in the colon consistent with diarrheal illness. UA unremarkable. Evaluated by GI in the ED who recommended supportive care. Likely viral gastroenteritis -Significantly improved this AM with IVF and anti-emetics PRN; asking to go home. Celiac disease 05/21/2021 Assessment & Plan (05/22/2021 10:30 AM CDT): Gluten-free diet ordered; GI will arrange follow up Resolved Problems Problem Noted Date Diagnosed Date Resolved Date Leukocytosis 05/22/2021 05/23/2021 Assessment & Plan (05/22/2021 10:43 AM CDT): WBC 25 improved to 9.8 with IVF alone. Likely was hemoconcentrated as all 3 cell lines were elevated -No further workup indicated Encounters Date Type Department Care Team Description 11/16/2024 Results Follow-Up [facility] [address] [place] [address] Ash Young MD 10/28/2024 8:00 AM ENVIRONMENTAL CONFLICT MANAGER Telemedicine [facility] [address] [facility] 12th [place] [address] [place] [address] Hepatic steatosis (Primary Dx); Encounter for dietary counseling and surveillance from Last 3 Months Immunizations Immunization Administration Dates Next Due DT 04/02/1999 DTP / HiB 06/08/1998,03/27/1998,02/07/1998 DTaP 02/21/2003, 9,06/08/1998,03/27,02/07/1998 HPV, Unspecified 11/06/2008,07/04/2008, 8 Hep A, Pediatric 04/16/2007,12/26/2005 Hep B, Adolescent or Pediatric 06/08/1998,1997,1997 HiB 12/18/1998 Hib (PRP-D) 12/18/1998, 8,03/27/1998,02/07 IPV 02/21/2003 Influenza Nasal, Unspecified 06/11/2010 Influenza, Unspecified 06/26/2009 MMR 02/21/2003,12/18/1998 Meningococcal MCV4P (Menactra) 03/15/2013 Meningococcal Polysaccharide (Menomune) 05/07/2009 OPV 12/18/1998,03/27/1998,02/07/1998 PPD TEST 02/21/2003,05/28/2000 Tdap 06/07/2014,05/04/2008 Varicella 04/16/2007,12/18/1998 Surgical History Surgery Date Site/Laterality Comments APPENDECTOMY 09/28/2013 - 09/27/2014 COLONOSCOPY POLYPECTOMY ECTOPIC SURGERY EXPLORATORY LAPAROTOMY ADHESIOLYSIS COLPOSCOPY Medical History Medical History Date Comments Celiac disease 2016 Intrauterine in teenager 2013 PCOS (polycystic ovarian syndrome) Colon polyp Endometriosis Family History Medical History Relation Name Comments No Known Problems Brother No Known Problems Daughter Heart attack Father Hyperlipidemia Father Endometrial cancer Maternal Grandmother Stroke Mother No Known Problems Sister Colon cancer Neg Hx Stomach cancer Neg Hx Relation Name Status Comments Brother Alive Daughter Alive Father Alive Maternal Grandmother Mother Alive Sister Alive Social History Tobacco Use Types Packs/Day Years Used Date Smoking Tobacco: Former Vaping Smokeless Tobacco: Never Tobacco Cessation:Counseling Given: Not Answered AUDIT-C Answer Date Recorded Q1: How often do you have a drink containing alcohol? Never 10/13/2024 Q2: How many drinks containi ng alcohol do you have on a typical day when you are drinking? Patient does not drink Q3: How often do you have si x or more drinks on one occasion? Never 10/13/2024 Personal Safety Answer Date Recorded Have you ever been in or are you currently in a harmful physical or emotional relationship or is someone making you feel afraid or unsafe? Denies 06/28/2024 Comments Unknown Sex and Gender Information Value Date Recorded Sex Assigned at Not on file Legal Sex Female 2:32 AM ENVIRONMENTAL CONFLICT MANAGER Gender Identity Not on file Sexual Orientation Not on file Obstetrics History Last Filed Vital Signs Vital Sign Reading Time Taken Comments Blood Pressure 121/86 10/13/2024 3:41 PM ENVIRONMENTAL CONFLICT MANAGER Pulse 68 10/13/2024 3:41 PM ENVIRONMENTAL CONFLICT MANAGER Temperature 36.6 C (97.9 F) 10/13/2024 3:41 PM ENVIRONMENTAL CONFLICT MANAGER Respiratory Rate 18 10/13/2024 3:41 PM ENVIRONMENTAL CONFLICT MANAGER Oxygen Saturation 98% 10/13/2024 3:41 PM ENVIRONMENTAL CONFLICT MANAGER Inhaled Oxygen Concentration - - Weight 113.6 kg (250 lb 6.4 oz) 10/13/2024 3:41 PM ENVIRONMENTAL CONFLICT MANAGER Height 162.6 cm (5' 4.02 ) 10/13/2024 3:41 PM CS T Body Mass Index 42.96 10/13/2024 3:41 PM ENVIRONMENTAL CONFLICT MANAGER Plan of Treatment Health Maintenance Due Date Last Done Comments Cervical Cancer Screening 1997 Depression Screening 1997 Regular Well Visit/Exam 18-64 12/05/2015 DTaP/Tdap/Td Vaccine (8 - Td or Tdap) 06/07/2024 06/07/2014, 05/04/2008, 02/21/2003, Additional history exists Influenza Vaccine (Season Ended) 2025 06/11/2010, 06/26/2009 Hepatitis B Screening Completed 06/08/1998 , 02/07/1998, 1997 Varicella Vaccines Completed 04/16/2007, 12/18/1998 HPV Vaccines Completed 11/06/2008, 1003/2008, 05/04/2008 Hepatitis C Screening Completed 06/10/2024 Pneumococcal vaccine <65 Aged Out No longer eligible based on patient's age to complete this topic Procedures Procedure Name Priority Date/Time Associated Diagnosis Comments FATTY ACIDS, FREE Routine 11/03/2024 11: 11 AM ENVIRONMENTAL CONFLICT MANAGER HEMOGLOBIN A1C Routine 11/03/2024 11:11 AM ENVIRONMENTAL CONFLICT MANAGER NAFLD (nonalcoholic fatty liver disease) Elevated LFTs INSULIN, TOTAL Routine 11/03/2024 11:11 AM ENVIRONMENTAL CONFLICT MANAGER NAFLD (nonalcoholic fatty liver disease) Elevated LFTs LIPID PANEL Routine 11/03/2024 11:11 AM ENVIRONMENTAL CONFLICT MANAGER NAFLD (nonalcoholic fatty liver disease) Elevated LFTs IGM Routine 11/03/2024 11:11 AM ENVIRONMENTAL CONFLICT MANAGER NAFLD (nonalcoholic fatty liver disease) Elevated LFTs IGG Routine 11/03/2024 11:11 AM ENVIRONMENTAL CONFLICT MANAGER NAFLD (nonalcoholic fatty liver disease) Elevated LFTs IGA Routine 11/03/2024 11:11 AM ENVIRONMENTAL CONFLICT MANAGER NAFLD (nonalcoholic fatty liver disease) Elevated LFTs BILIRUBIN, DIRECT Routine 11/03/2024 11: 11 AM ENVIRONMENTAL CONFLICT MANAGER NAFLD (nonalcoholic fatty liver disease) Elevated LFTs CBC WITH AUTO DIFFERENTIAL Routine 11/03/2024 11:11 AM ENVIRONMENTAL CONFLICT MANAGER NAFLD (nonalcoholic fatty liver disease) Elevated LFTs COMPREHENSIVE METABOLIC PANEL Routine 11/03/2024 11:11 AM ENVIRONMENTAL CONFLICT MANAGER NAFLD (nonalcoholic fatty liver disease) Elevated LFTs HEPATITIS C ANTIBODY Routine 06/10/2024 11:02 AM CDT Elevated LFTs Celiac disease Abdominal pain from Last 3 Months or Most Recently Relevant to Health Maintenance Results * (ABNORMAL) CBC with auto differential (11/03/2024 11:11 AM ENVIRONMENTAL CONFLICT MANAGER) WBC 10.4 3.8 - 10.8 Thousand/u L [facility] RBC, POC 4.67 3.80 - 5.10 Million/uL [facility] Hgb 11.9 11.7 - 15.5 g/dL [facility] Hct 38.3 35.0 - 45.0 % [facility] MCV 82.0 80.0 - 100.0 fL [facility] MCH 25.5(L) 27.0 - 33.0 pg [facility] MCHC 31.1(L) 32.0 - 36.0 g/dL [facility] Comment: For adults, a slight decrease in the calculated MCHC value (in the range of 30 to 32 g/dL) is most likely not clinically significant; however, it should be interpreted with caution in correlation with other red cell parameters and the patient's clinical condition. Rdw 15.1(H) 11.0 - 15.0 % [facility] Platelets 372 140 - 400 Thousand/u L [facility] MPV 11.8 7.5 - 12.5 fL [facility] Neutrophils, abs 6,188 1,500 - 7,800 cells/uL [facility] Lymphocytes, abs 3,401 850 - 3,900 cells/uL [facility] Monocyte abs 676 200 - 950 cells/uL [facility] Eosinophils, abs 114 15 - 500 cells/uL [facility] Basophils, abs 21 0 - 200 cells/uL [facility] Neutrophils 59.5 % [facility] Lymphocyte pct 32.7 % [facility] Monocytes 6.5 % [facility] Eosinophils 1.1 % [facility] Basophils 0.2 % [facility] Blood 11/03/2024 11:1 1 AM ENVIRONMENTAL CONFLICT MANAGER 11/03/2024 11:13 AM ENVIRONMENTAL CONFLICT MANAGER Ash Young MD LAB BLOOD ORDERABLES Fin al Result [facility] [address] [place] [address] * Fatty acids, free (11/03/2024 11:11 AM ENVIRONMENTAL CONFLICT MANAGER) Pathologist [facility] Fatty acids, free 0.40 0.07 - 0.88 mmol/L [facility], 11/03/2024 11:1 1 AM ENVIRONMENTAL CONFLICT MANAGER 11/03/2024 11:13 AM ENVIRONMENTAL CONFLICT MANAGER Ash Young MD LAB BLOOD ORDERABLES Fin al Result [facility], [address] [place] [address] * (ABNORMAL) Insulin, total (11/03/2024 11:11 AM ENVIRONMENTAL CONFLICT MANAGER) INSULIN 28.1(H) uIU/mL [facility] Comment: Reference Range < or = 18.4 Risk: Optimal < or = 18.4 Moderate NA High >18.4 Adult cardiovascular event risk category cut points (optimal, moderate, high) are based on Insulin Reference Interval studies performed at [facility] in 2021. Blood 11/03/2024 11:1 1 AM ENVIRONMENTAL CONFLICT MANAGER 11/03/2024 11:13 AM ENVIRONMENTAL CONFLICT MANAGER Ash Young MD LAB BLOOD ORDERABLES Fin al Result Performing Organization Address [facility] Co de Phone Number [facility] [address] [place] [address] * (ABNORMAL) Hemoglobin A1c (11/03/2024 11:11 AM ENVIRONMENTAL CONFLICT MANAGER) Hgb A1C 6.1(H) <5.7 % of total Hgb [facility] Comment: For someone without known diabetes, a hemoglobin A1c value between 5.7% and 6.4% is consistent with prediabetes and should be confirmed with a follow-up test. For someone with known diabetes, a value <7% indicates that their diabetes is well controlled. A1c targets should be individualized based on duration of diabetes, age, comorbid conditions, and other considerations. This assay result is consistent with an increased risk of diabetes. Currently, no consensus exists regarding use of hemoglobin A1c for diagnosis of diabetes for children. Your request to have a duplicate copy faxed has been acknowledged. Queued to: [id number] Blood 11/03/2024 11:1 1 AM ENVIRONMENTAL CONFLICT MANAGER 11/03/2024 11:13 AM ENVIRONMENTAL CONFLICT MANAGER Ash Young MD LAB BLOOD ORDERABLES Fin al Result [facility] [address] [place] [address] * IgA (11/03/2024 11:11 AM ENVIRONMENTAL CONFLICT MANAGER) Immunoglobulin A 226 47 - 310 mg/dL [facility] Blood 11/03/2024 11:1 1 AM ENVIRONMENTAL CONFLICT MANAGER 11/03/2024 11:13 AM ENVIRONMENTAL CONFLICT MANAGER Ash Young MD LAB BLOOD ORDERABLES Fin al Result Performing Organization Address [facility] Co de Phone Number [facility] [address] [place] [address] * IgM (11/03/2024 11:11 AM ENVIRONMENTAL CONFLICT MANAGER) Immunoglobulin M 218 50 - 300 mg/dL [facility] Blood 11/03/2024 11:1 1 AM ENVIRONMENTAL CONFLICT MANAGER 11/03/2024 11:13 AM ENVIRONMENTAL CONFLICT MANAGER Ash Young MD LAB BLOOD ORDERABLES Fin al Result Performing Organization Address [facility] Co de Phone Number [facility] [address] [place] [address] * IgG (11/03/2024 11:11 AM ENVIRONMENTAL CONFLICT MANAGER) Immunoglobulin G 995 600 - 1,640 mg/dL [facility] Blood 11/03/2024 11:1 1 AM ENVIRONMENTAL CONFLICT MANAGER 11/03/2024 11:13 AM ENVIRONMENTAL CONFLICT MANAGER Ash Young MD LAB BLOOD ORDERABLES Fin al Result Performing Organization Address [facility] Co de Phone Number [facility] [address] [place] [address] * Bilirubin, direct (11/03/2024 11:11 AM ENVIRONMENTAL CONFLICT MANAGER) Bilirubin, direct 0.1 < OR = 0.2 mg/dL [facility] Blood 11/03/2024 11:1 1 AM ENVIRONMENTAL CONFLICT MANAGER 11/03/2024 11:13 AM ENVIRONMENTAL CONFLICT MANAGER Ash Young MD LAB BLOOD ORDERABLES Fin al Result Performing Organization Address City/[facility]/ZIP Co de Phone Number [facility] [address] [address] * (ABNORMAL) Lipid panel (11/03/2024 11:11 AM ENVIRONMENTAL CONFLICT MANAGER) Pathologist [facility] Cholesterol 174 <200 mg/dL [facility] HDL 37(L) > OR = 50 mg/dL [facility] Triglycerides 132 <150 mg/dL [facility] LDL 112(H) mg/dL (calc) [facility] Comment: Reference range: <100 Desirable range <100 mg/dL for primary prevention; <70 mg/dL for patients with CHD or diabetic patients with > or = 2 CHD risk factors. LDL-C is now calculated using the Shane-Adrian calculation, which is a validated novel method providing better accuracy than the Friedewald equation in the estimation of LDL-C. Shane SS et al. TODD. 2013;310(19): 7546-2636 (http://education.Revionics/faq/TWJ268) Chol/HDL ratio 4.7 <5.0 (calc) [facility] Non-HDL, (LDL+VLDL) 137(H) <130 mg/dL (calc) [facility] Comment: For patients with diabetes plus 1 major ASCVD risk factor, treating to a non-HDL-C goal of <100 mg/dL (LDL-C of <70 mg/dL) is considered a therapeutic option. Blood 11/03/2024 11:1 1 AM ENVIRONMENTAL CONFLICT MANAGER 11/03/2024 11:13 AM ENVIRONMENTAL CONFLICT MANAGER Ash Young MD LAB BLOOD ORDERABLES Fin al Result Performing Organization Address City/[facility]/ZIP Co de Phone Number [facility] [address] [place] [address] * (ABNORMAL) Comprehensive metabolic panel (11/03/2024 11:11 AM ENVIRONMENTAL CONFLICT MANAGER) Glucose 97 65 - 99 mg/dL [facility] Comment: Fasting reference interval BUN 13 7 - 25 mg/dL [facility] Creatinine 0.70 0.50 - 0.96 mg/dL [facility] eGFR 122 > OR = 60 mL/min/1.7 3m2 [facility] BUN/creat ratio SEE NOTE: 6 - 22 (calc) [facility] Comment: Not Reported: BUN and Creatinine are within reference range. Sodium 138 135 - 146 mmol/L [facility] Potassium, pl 4.4 3.5 - 5.3 mmol/L [facility] Chloride 103 98 - 110 mmol/L [facility] CO2 28 20 - 32 mmol/L [facility] Calcium 9.3 8.6 - 10.2 mg/dL [facility] Protein, sr 7.2 6.1 - 8.1 g/dL [facility] Albumin 4.4 3.6 - 5.1 g/dL [facility] GLOBULIN 2.8 1.9 - 3.7 g/dL (calc) [facility] Alb/glob ratio 1.6 1.0 - 2.5 (calc) [facility] Bilirubin, total 0.4 0.2 - 1.2 mg/dL [facility] Alk phos 106 31 - 125 U/L [facility] AST 63(H) 10 - 30 U/L [facility] ALT (SGPT) 104(H) 6 - 29 U/L [facility] Blood 11/03/2024 11:1 1 AM ENVIRONMENTAL CONFLICT MANAGER 11/03/2024 11:13 AM ENVIRONMENTAL CONFLICT MANAGER us Ash Young MD LAB BLOOD ORDERABLES Fin al Result [facility] [address] [place] [address] * Hepatitis C antibody Blood (06/10/2024 11:02 AM CDT) Hep C Ab NON-REACTI VE NON-REACT [facility]N [facility] Comment: HCV antibody was non-reactive. There is no laboratory evidence of HCV infection. In most cases, no further action is required. However, if recent HCV exposure is suspected, a test for HCV RNA (test code 68279) is suggested. For additional information please refer to http://education.[employer] Crow[employer]/faq/RTY92n5 (This link is being provided for informational/ educational purposes only.) Blood 06/10/2024 11:0 2 AM CDT 06/10/2024 11:03 AM CDT Narrative [facility] - 06/15/2024 5:30 AM CDT FASTING:NO FASTING: NO Nicci Edwards MD LAB MICROBIOLOGY - [facility] Final Result [facility] [address] [place] [address] from Last 3 Months or Most Recently Relevant to Health Maintenance Insurance [facility] [employer] ACCESS CHOICE Advance Directives For more information, please contact: [phone] * Full Code (Latest Code Status on File) Date Activated Date Inactivated Comments 06/28/2024 1:20 PM 06/28/2024 6:50 PM * Full Code Date Activated Date Inactivated Comments 05/21/2021 9:13 PM 05/22/2021 7:39 PM * Full Code Date Activated Date Inactivated Comments 05/20/2021 8:53 AM 05/20/2021 3:23 PM Care Teams Foil Wrapper Relationship Specialty Start Date End Date Manas Reza MD [address] [facility] [address] [place] [address] PCP - General 05/21/21
--- OUTSIDE RECORDS SUMMARY | 2025-01-13 11:19 | XMS_ITS | Clinical Summary ---
Author Organization [facility] Address [address] [place] [address] Care Team Providers Care Type Disk Quality Control Supervisor Name Role Phone [facility], External Provider Primary Care Provider U navailable Allergies Active Allergy Reactions Criticality Noted Date Comments Amoxicillin Rash Low 01/22/2024 Medications docusate sodium (COLACE) 100 mg capsule Take 100 mg by mouth daily. Active oxyCODONE-aceta minophen (PERCOCET) 5-325 mg tablet Take 1 Tab by mouth every 6 hours as needed for Pain, Moderate (For Pain Scale 4-6). 20 Tab 0 07/03/2014 Active ibuprofen (MOTRIN) 600 mg tablet Take 1 Tab by mouth every 6 hours as needed for Pain. 90 Tab 0 07/03/2014 Active Active Problems Problem Noted Date Diagnosed Date Suspected endometritis, trip le abx (efk-dagl-sawkxm), cbc/cmp pending, blood cultures if febrile 07/04/2014 07/0107/01/2014 MIL(Cholestasis), pit, s/p F B & cytotec x3, gbs-, A+, SROM 0300 06/30/2014 ptc, back pain, cx pending, ffn pending 05/27/20 14 Abdominal pain/burning, Appy 04/11, Percocet, Lid oderm patch 04/17/2014 S/p open appy, Zosyn x 3 dos es, Percocet, gen diet, WBC 19->14, NST BID 04/11/2014 ICP? Actigall 600 BID, possible d/c today 2013 Other specified screening(V28.89) 02/26 Overview (03/15/2014): Normal 2nd tri anatomy by US, female fetus ICP, incr pruritus, hydroxyzine 03/13/2014 Teen 01/10/2014 Resolved Problems Problem Noted Date Diagnosed Date Resolved Date Oligomenorrhea 01/10/2014 02/13/2014 Immunizations Immunization Administration Dates Next Due (ADACEL/BOOSTRIX)(10 YR UP) TDAP VACCINE, 0.5ML, IM 06/07/2014 Family History Medical History Relation Name Comments Healthy Father High Cholesterol Father Endometrial Cancer Maternal Grandmother Other Maternal Grandmother endomet riosis Uterine Cancer Maternal Grandmother Thyroid Disease Maternal Uncle Stroke Mother Breast Cancer Neg Hx Colon Cancer Neg Hx Ovarian Cancer Neg Hx Preeclampsia Neg Hx Prematurity Neg Hx Labor Neg Hx SIDS Neg Hx Sickle Cell Anemia Neg Hx Sickle Cell Trait Neg Hx Spont Ab Neg Hx Relation Name Status Comments Father Alive Maternal Grandmother Maternal Uncle Mother Alive Social History Tobacco Use Types Packs/Day Years Used Date Smoking Tobacco: Never Smokeless Tobacco: Never Alcohol Use Standard Drinks/Week Comments No 0 (1 standard drink = 0.6 oz pur e alcohol) Feeling Safe Answer Date Recorded Are you in a relationship wi th someone who hurts you emotionally and/or physically? No 01/22/2024 Comments No Sex and Gender Information Value Date Recorded Sex Assigned at Not on file Legal Sex Female 9:31 AM CDT Gender Identity Not on file Sexual Orientation Not on file Occupation Industry Job Start Date Job End Date Not on file Not on file Not on file Not on file Last Filed Vital Signs Vital Sign Reading Time Taken Comments Blood Pressure 111/74 01/22/2024 12:00 PM CDT Pulse 89 01/22/2024 12:00 PM CDT Temperature 36.7 C (98.1 F) 01/22/2024 12:00 PM CDT Respiratory Rate 16 01/22/2024 9:41 AM CDT Oxygen Saturation 97% 01/22/2024 12:00 PM CDT Inhaled Oxygen Concentration - - Weight 99.8 kg (220 lb) 01/22/2024 9:41 AM CDT Height 162.6 cm (5' 4 ) 01/22/2024 9:41 AM CDT Body Mass Index 37.76 01/22/2024 9:41 AM CDT Plan of Treatment Health Maintenance Due Date Last Done Comments CERVICAL CANCER SCREENING 2018 HPV/Cotest (21-29) 2018 PAP SMEAR 2018 PAP SMEAR 2018 INFLUENZA VACCINE (#1) 2024 06/11/2010 DTAP/TDAP/TD VACCINES (8 - T d or Tdap) 06/07/2024 06/07/2014, 05/04/2008, 02/21/2003, Additional history exists HEPATITIS B VACCINES Completed 06/08/1998, 02/07/1998, 1997 HPV VACCINES Completed 11/06/2008, 03/2008, 05/04/2008 CHLAMYDIA SCREENING (ANNUAL) 11-24 YEARS Discontinued 05/27/2014, 01/10/2014, 01/10/2014 Procedures Procedure Name Priority Date/Time Associated Diagnosis Comments GC/CHLAMYDIA, GENITAL Routine 05/27/2014 7:44 PM CDT from Last 3 Months or Most Recently Relevant to Health Maintenance Results * GC/CHLAMYDIA, GENITAL (05/27/2014 7:44 PM CDT) FINAL MICRO REPORT No Chlamydia trachomatis detected. No Neisseria gonorrhoeae detected. [facility] Specimen from genital system (specimen) (Endocervical) 05/27/2014 7:44 PM CDT 05/27/2014 8:18 PM CDT Comment:ENDOCERVICAL Narrative [facility] - 05/30/2014 2:37 PM CDT All identification methods for Chlamydia trachomatis and Neisseria gonorrhoeae may result in false positive results, particularly in low prevalence populations. Re-testing is recommended in circumstances where a positive diagnosis could lead to adverse psychosocial impact. Culture is the only recommended procedure for the diagnosis of Chlamydia and Gonorrhea infection in cases of suspected child abuse. A negative test does not exclude the possibility of infection. Consultation with the laboratory is recommended in cases where there is a negative test result and a high clinical suspicion for Chlamydia or Gonorrhea infection. Therapeutic response cannot be evaluated by this test, as nucleic acid may persist following therapy, even in the absence of organism. us Jabari Reilly DO MICRO - GEN ORDERABLES COM Final Result [facility]# [id number] [address] [place] [address] from Last 3 Months or Most Recently Relevant to Health Maintenance Insurance BLUE ACCESS CHOICE Advance Directives For more information, please contact: [phone] * Full Code (Latest Code Status on File) Date Activated Date Inactivated Comments 07/01/2014 6:50 PM 07/03/2014 7:30 PM * Full Code Date Activated Date Inactivated Comments 07/01/2014 6:49 PM 07/01/2014 6:50 PM * Full Code Date Activated Date Inactivated Comments 06/30/2014 1:19 AM 07/01/2014 6:49 PM * Full Code Date Activated Date Inactivated Comments 05/27/2014 7:43 PM 05/28/2014 1:01 AM * Full Code Date Activated Date Inactivated Comments 05/25/2014 1:05 PM 05/25/2014 6:27 PM Care Teams Type Disk Quality Control Supervisor Relationship Specialty Start Date End Date [facility], External Provider [address] [place] [address] PCP - General 03/17/14
--- OUTSIDE RECORDS SUMMARY | 2025-01-13 11:19 | XMS_ITS | Referral Summary ---
Author Organization [facility] Address [address] [place] [address] Care Team Providers Care Validation Technician Name Role Phone Manas Reza MD Primary Care Provider Encounters Date Type Department Care Team Description 11/16/2024 Results Follow-Up [facility] [address] 2nd [address] [place] [address] Ash Young MD 10/28/2024 8:00 AM LANGUAGE ASSISTANT Telemedicine [facility] Gastroenterology [address] 12th [place] [address] [place] [address] Hepatic steatosis (Primary Dx); Encounter for dietary counseling and surveillance from Last 3 Months Allergies Active Allergy Reactions Criticality Noted Date [...] lines were elevated -No further workup indicated Immunizations Immunization Administration Dates Next Due DT 04/02/1999 DTP / HiB 06/08/1998,03/27/1998,02/07/1998 DTaP 02/21/2003, 9,06/08/1998,03/27,02/07/1998 HPV, Unspecified 11/06/2008,07/04/2008, 8 Hep A, Pediatric 04/16/2007,12/26/2005 Hep B, Adolescent or Pediatric 06/08/1998,1997,1997 HiB 12/18/1998 Hib (PRP-D) 12/18/1998, 8,03/27/1998,02/07 IPV 02/21/2003 Influenza Nasal, Unspecified 06/11/2010 Influenza, Unspecified 06/26/2009 MMR 02/21/2003,12/18/1998 Meningococcal MCV4P (Menactra) 03/15/2013 Meningococcal Polysaccharide (Menomune) 05/07/2009 OPV 12/18/1998,03/27/1998,02/07/1998 PPD TEST 02/21/2003,05/28/2000 Tdap 06/07/2014,05/04/2008 Varicella 04/16/2007,12/18/1998 Social History Tobacco Use Types Packs/Day Years [...] on file Legal Sex Female 2:32 AM LANGUAGE ASSISTANT Gender Identity Not on file Sexual Orientation Not on file Last Filed Vital Signs Vital Sign Reading Time Taken Comments Blood Pressure 121/86 10/13/2024 3:41 PM LANGUAGE ASSISTANT Pulse 68 10/13/2024 3:41 PM LANGUAGE ASSISTANT Temperature 36.6 C (97.9 F) 10/13/2024 3:41 PM LANGUAGE ASSISTANT Respiratory Rate 18 10/13/2024 3:41 PM LANGUAGE ASSISTANT Oxygen Saturation 98% 10/13/2024 3:41 PM LANGUAGE ASSISTANT Inhaled Oxygen Concentration - - Weight 113.6 kg (250 lb 6.4 oz) 10/13/2024 3:41 PM LANGUAGE ASSISTANT Height 162.6 cm (5' 4.02 ) 10/13/2024 3:41 PM CS T Body Mass Index 42.96 10/13/2024 3:41 PM LANGUAGE ASSISTANT Plan of Treatment Not on file Procedures Procedure Name Priority Date/Time Associated Diagnosis Comments FATTY ACIDS, FREE Routine 11/03/2024 11: 11 AM LANGUAGE ASSISTANT HEMOGLOBIN A1C Routine 11/03/2024 11:11 AM LANGUAGE ASSISTANT NAFLD (nonalcoholic fatty liver disease) Elevated LFTs INSULIN, TOTAL Routine 11/03/2024 11:11 AM LANGUAGE ASSISTANT NAFLD (nonalcoholic fatty liver disease) Elevated LFTs LIPID PANEL Routine 11/03/2024 11:11 AM LANGUAGE ASSISTANT NAFLD (nonalcoholic fatty liver disease) Elevated LFTs IGM Routine 11/03/2024 11:11 AM LANGUAGE ASSISTANT NAFLD (nonalcoholic fatty liver disease) Elevated LFTs IGG Routine 11/03/2024 11:11 AM LANGUAGE ASSISTANT NAFLD (nonalcoholic fatty liver disease) Elevated LFTs IGA Routine 11/03/2024 11:11 AM LANGUAGE ASSISTANT NAFLD (nonalcoholic fatty liver disease) Elevated LFTs BILIRUBIN, DIRECT Routine 11/03/2024 11: 11 AM LANGUAGE ASSISTANT NAFLD (nonalcoholic fatty liver disease) Elevated LFTs CBC WITH AUTO DIFFERENTIAL Routine 11/03/2024 11:11 AM LANGUAGE ASSISTANT NAFLD (nonalcoholic fatty liver disease) Elevated LFTs COMPREHENSIVE METABOLIC PANEL Routine 11/03/2024 11:11 AM LANGUAGE ASSISTANT NAFLD (nonalcoholic fatty liver disease) Elevated LFTs HEPATITIS C ANTIBODY Routine 06/10/2024 11:02 AM CDT Elevated LFTs Celiac disease Abdominal pain from Last 3 Months or Most Recently Relevant to Health Maintenance Results * (ABNORMAL) CBC with auto differential (11/03/2024 11:11 AM LANGUAGE ASSISTANT) WBC 10.4 3.8 - 10.8 Thousand/u L [...] [facility] Blood 11/03/2024 11:1 1 AM LANGUAGE ASSISTANT 11/03/2024 11:13 AM LANGUAGE ASSISTANT Ash Young MD LAB BLOOD ORDERABLES Fin al Result Performing Organization Address City/[facility]/ZIP Co de Phone Number [facility] [address] [address] * Fatty acids, free (11/03/2024 11:11 AM LANGUAGE ASSISTANT) Pathologist [facility] Fatty acids, free 0.40 0.07 - 0.88 mmol/L [facility] [facility], 11/03/2024 11:1 1 AM LANGUAGE ASSISTANT 11/03/2024 11:13 AM LANGUAGE ASSISTANT Ash Young MD LAB BLOOD ORDERABLES Fin al Result Performing Organization Address [facility] de Phone Number [facility] [facility], [address] [place] [address] * (ABNORMAL) Insulin, total (11/03/2024 11:11 AM LANGUAGE ASSISTANT) Pathologist [facility] INSULIN 28.1(H) uIU/mL [facility] Comment: Reference Range < or = 18.4 Risk: Optimal < or = 18.4 Moderate NA High >18.4 Adult cardiovascular event risk category cut points (optimal, moderate, high) are based on Insulin Reference Interval studies performed at [facility] in 2021. Blood 11/03/2024 11:1 1 AM LANGUAGE ASSISTANT 11/03/2024 11:13 AM LANGUAGE ASSISTANT Ash Yuong MD LAB BLOOD ORDERABLES Fin al Result Performing Organization Address [facility] Co de Phone Number [facility] [address] [address] * (ABNORMAL) Hemoglobin A1c (11/03/2024 11:11 AM LANGUAGE ASSISTANT) Pathologist [facility] Hgb A1C 6.1(H) <5.7 % of total [...] copy faxed has been acknowledged. Queued to: [id number] Blood 11/03/2024 11:1 1 AM LANGUAGE ASSISTANT 11/03/2024 11:13 AM LANGUAGE ASSISTANT Ash Young MD LAB BLOOD ORDERABLES Fin al Result Performing Organization Address City/[facility] Co de Phone Number [facility] [address] [place] [address] * IgA (11/03/2024 11:11 AM LANGUAGE ASSISTANT) Immunoglobulin A 226 47 - 310 mg/dL [facility] Blood 11/03/2024 11:1 1 AM LANGUAGE ASSISTANT 11/03/2024 11:13 AM LANGUAGE ASSISTANT Ash Young MD LAB BLOOD ORDERABLES Fin al Result Performing Organization Address [facility] Co de Phone Number [facility] [address] [place] [address] * IgM (11/03/2024 11:11 AM LANGUAGE ASSISTANT) Immunoglobulin M 218 50 - 300 mg/dL [facility] Blood 11/03/2024 11:1 1 AM LANGUAGE ASSISTANT 11/03/2024 11:13 AM LANGUAGE ASSISTANT Ash Young MD LAB BLOOD ORDERABLES Fin al Result Performing Organization Address [facility] Co de Phone Number [facility] [address] [place] [address] * IgG (11/03/2024 11:11 AM LANGUAGE ASSISTANT) Immunoglobulin G 995 600 - 1,640 mg/dL [facility] Blood 11/03/2024 11:1 1 AM LANGUAGE ASSISTANT 11/03/2024 11:13 AM LANGUAGE ASSISTANT Ash Young MD LAB BLOOD ORDERABLES Fin al Result Performing Organization Address [facility] Co de Phone Number [facility] [address] [place] [address] * Bilirubin, direct (11/03/2024 11:11 AM LANGUAGE ASSISTANT) Bilirubin, direct 0.1 < OR = 0.2 mg/dL [facility] Blood 11/03/2024 11:1 1 AM LANGUAGE ASSISTANT 11/03/2024 11:13 AM LANGUAGE ASSISTANT Ash Young MD LAB BLOOD ORDERABLES Fin al Result Performing Organization Address [facility] de Phone Number [facility] [address] [place] [address] * (ABNORMAL) Lipid panel (11/03/2024 11:11 AM LANGUAGE ASSISTANT) Cholesterol 174 <200 mg/dL [facility] [...] factors. LDL-C is now calculated using the Tylor calculation, which is a validated novel method providing better accuracy than the Friedewald equation in the estimation of LDL-C. Shane MORA et al. TODD. 2013;310(19): 8829-4757 (http://education.Babelway.Venuemob/faq/WNW776) Chol/HDL ratio 4.7 <5.0 (calc) [facility] Non-HDL, (LDL+VLDL) 137(H) <130 mg/dL (calc) [facility] Comment: For patients with diabetes plus 1 major ASCVD risk factor, treating to a non-HDL-C goal of <100 mg/dL (LDL-C of <70 mg/dL) is considered a therapeutic option. Blood 11/03/2024 11:1 1 AM LANGUAGE ASSISTANT 11/03/2024 11:13 AM LANGUAGE ASSISTANT us Ash Young MD LAB BLOOD ORDERABLES Fin al Result [facility] [address] [address] [address] * (ABNORMAL) Comprehensive metabolic panel (11/03/2024 11:11 AM LANGUAGE ASSISTANT) Glucose 97 65 - 99 mg/dL [facility] Blood 11/03/2024 11:1 1 AM LANGUAGE ASSISTANT 11/03/2024 11:13 AM LANGUAGE ASSISTANT Ash Young MD LAB BLOOD ORDERABLES Fin al Result Performing Organization Address [facility] Co de Phone Number [facility] [address] [address] * Hepatitis C antibody Blood (06/10/2024 11:02 AM CDT) Hep C Ab NON-REACTI VE NON-REACT TARYN [facility] Comment: HCV antibody was non-reactive. There is no laboratory evidence of HCV infection. In most cases, no further action is required. However, if recent HCV exposure is suspected, a test for HCV RNA (test code 84960) is suggested. For additional information please refer to http://education.[employer]/faq/TVG43r4 (This link is being provided for informational/ educational purposes only.) Blood 06/10/2024 11:0 2 AM CDT 06/10/2024 11:03 AM CDT Narrative [facility] - 06/15/2024 5:30 AM CDT FASTING:NO FASTING: NO Nicci Edwards MD LAB MICROBIOLOGY - GENERAL [place] BUNN Final Result Performing Organization Address [facility] Co de Phone Number FRANK[facility] [address] [address] from Last 3 Months or Most Recently Relevant to Health Maintenance Insurance ANTHEM ACCESS CHOICE CIGNA ANTHEM ACCESS CHOICE Advance Directives For more information, please contact: [phone] * Full Code (Latest Code Status on File) Date Activated Date Inactivated Comments 06/28/2024 1:20 PM 06/28/2024 6:50 PM * Full Code Date Activated Date Inactivated Comments 05/21/2021 9:13 PM 05/22/2021 7:39 PM * Full Code Date Activated Date Inactivated Comments 05/20/2021 8:53 AM 05/20/2021 3:23 PM Care Teams Validation Technician Relationship Specialty Start Date End Date Manas Reza MD [address] [address] PCP - General 05/21/21
--- OUTSIDE RECORDS SUMMARY | 2025-01-13 11:19 | XMS_ITS | Clinical Summary ---
Author Organization [facility] [employer] Address [address] [place] [address] Care Team Providers Care Train Station Agent Name Role Phone Manas Reza MD Primary Care Provider [phone] [facility],non-owned Affiliates and Associated Physician Practices is amultiple site organization consisting of ambulatory clinics and hospital sitesin [place], [place], [place] and [place]. This disclosure is being madepursuant to the Care Everywhere program and may not contain all information available regarding this patient. Last updated 18.[facility] [employer] Allergies Active Allergy Reactions Criticality Noted Date Comments Augmentin Nausea and/or Vomiting 05/13/2010 Pt states she can take amoxicillin by its self Medications * Be aware that medications may not be up to date on this document. Alwaysverify current medications with the patient. No known medications Active Problems Problem Noted Date Diagnosed Date BMI (body mass index), pedia tric, 85% to less than 95% for age 0805/11/2012 Generalized abdominal pain Immunizations Immunization Administration Dates Next Due DTaP VACCINE IM (6wk-6yrs) 02/21/2003,,06/08/1998, 8,02/07/1998 HEP A PEDS 2 DOSE 04/16/2007,12/26/2005 HEP B VACCINE, PED/ADOL 06/08/1998,02/07/1998, HIB BOOSTER 12/18/1998, 8,03/27/1998, 8 Human Papilloma Virus Vaccine 11/06/2008, 008,05/04/2008 INFLUENZA VACCINE 06/26/2009 Influenza Nasal 06/11/2010 MENINGOCOCAL MENINGITIS 05/07/2009 MENINGOCOCCAL ACWY (MCV4P) VAC IM 03/15/2013 MMR 02/21/2003,12/18/1998 POLIO IPV 02/21/2003 POLIO OPV 12/18/1998,03/27/1998,02/07/1998 PPD 02/21/2003,05/28/2000 TDAP (7yrs+) 05/04/2008 VARICELLA 04/16/2007,12/18/1998 Family History Medical History Relation Name Comments Cancer Maternal Grandmother brain Relation Name Status Comments Maternal Grandmother Social History Tobacco Use Types Packs/Day Years Used Date Smoking Tobacco: Never Smokeless Tobacco: Never Alcohol Use Standard Drinks/Week Comments No 0 (1 standard drink = 0.6 oz pur e alcohol) Comments No Sex and Gender Information Value Date Recorded Sex Assigned at Not on file 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 Gender Identity Not on file Sexual Orientation Not on file Last Filed Vital Signs Vital Sign Reading Time Taken Comments Blood Pressure 122/70 05/29/2020 12:40 PM CDT Pulse 101 05/29/2020 12:40 PM CDT Temperature 36.9 C (98.4 F) 05/29/2020 12:40 PM CDT Respiratory Rate 16 05/29/2020 12:40 PM CDT Oxygen Saturation 99% 05/29/2020 12:40 PM CDT Inhaled Oxygen Concentration - - Weight 81.6 kg (180 lb) 05/29/2020 12:40 PM CDT Height 162.6 cm (5' 4 ) 05/29/2020 12:40 PM CDT Body Mass Index 30.9 05/29/2020 12:40 PM CDT Plan of Treatment Health Maintenance Due Date Last Done Comments PAP SMEAR 1997 HIV SCREENING 2012 HEPATITIS C SCREENING 11/30/2015 DTAP/TDAP/TD VACCINES (7 - Td or Tdap) 05/04/2018 05/04/2008, 02/21/2003, 04/02/1999, Additional history exists COVID-19 VACCINE ( season) 2024 DEPRESSION SCREENING 09/28/2024 INFLUENZA VACCINE (Season Ended) 2025 06/11/2010, 06/26/2009 ZOSTER VACCINE (1 of 2) 12/05/2047 HEPATITIS B VACCINE Completed 06/08/1998, 02/07/1998, 1997 HIB VACCINE Completed 12/18/1998, 05/29, 03/27/1998, Additional history exists HPV VACCINE Completed 11/06/2008, 03/2008, 05/04/2008 MENINGOCOCCAL GROUPS A/C/Y/W VACCINE Aged Out 03/15/2013, 05/07/2009 No longer eligibl e based on patient's age to complete this topic MENINGOCOCCAL (Group B) VACCINE SHARED DECISION-MAKING Aged Out No longer eligible based on patient's age to complete this topic PNEUMOCOCCAL VACCINE Aged Out No long er eligible based on patient's age to complete this topic Insurance [employer] CIGNA [facility] SELF PAY NO INSURANCE Member Subscriber Plan / Payer (Ef fective for All Dates) Name:Isha Lim Member ID:Not on file Relation to Subscriber:Not on file Name:ISHA LIM Subscriber ID:Not on file Address: [address] [place] [address] Payer ID:Not on file Group ID:Not on file Type:Self Pay Address: [place], [place] BCBS/[employer] [place] SELF PAY NO INSURANCE Member Subscriber Plan / Payer (Ef fective for All Dates) Name:Isha Lim Member ID:Not on file Relation to Subscriber:Not on file Name:ISHA LIM Subscriber ID:Not on file Address: [place] [address] Payer ID:Not on file Group ID:Not on file Type:Self Pay Address: [place], [place] BCBS/[employer] [place] SELF PAY NO INSURANCE Member Subscriber Plan / Payer (Ef fective for All Dates) Name:Isha Lim Member ID:Not on file Relation to Subscriber:Not on file Name:LIMMERCEDI Subscriber ID:Not on file Address: [facility] [place] [address] Payer ID:Not on file Group ID:Not on file Type:Self Pay Address: [place], [place] Care Teams Train Station Agent Relationship Specialty Start Date End Date Manas Reza MD [address] [place] [address] PCP - General Family Medicine 06/10/16
--- OUTSIDE RECORDS SUMMARY | 2025-01-13 11:19 | XMS_ITS | Encounter Summary ---
Author Organization [facility] Address [address] [place] [address] Phone Care Team Providers Care Gas Appliance Servicer Name Role Phone Manas Reza MD Primary Care Provider Encounter Details Date Type Department Care Team (Late st Contact Info) Description 11/16/2024 Results Follow-Up [facility] Gastroenterology [address] [place] [address] Ash Young MD [address] [place], [place] [id number] Social History Tobacco Use Types Packs/Day Years Used Date Smoking Tobacco: Former Vaping Smokeless Tobacco: Never AUDIT-C Answer Date Recorded Q1: How often [...] on file 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
--- OUTSIDE RECORDS SUMMARY | 2025-01-13 11:19 | XMS_ITS | Patient Health Record ---
Author Organization [facility] Address [address] [place], [place] [address] Care Team Providers Care Escalator Mechanic Name Role Phone Manas Reza M.D. Primary Care Provider ELADIO Jensen [phone] Reason For Referral No Information Medications Medication SIG (Take, Route, Frequency, Duration) Notes Start Date End Date Status EpiPen 2-Artur 0.3 MG/0.3ML as directed In jection prn for 360 days 05/11/2017 Active Vitamin D 1000 UNIT 1 tablet Orally Once a day Active Kaci Allergy 180 MG 1 tablet as neede d Orally Once a day Active Problems Problem Type SNOMED Code ICD Code Onset Dates Problem Status W/U Status Risk Notes Problem Allergic rhinitis caused by pollen (disorder) (47382551) Allergic rhinitis due to pollen (J30.1) Active confirmed Problem Allergic rhinitis (75845362) Other allergic rhinitis (J30.89) Active confirmed Problem Idiopathic urticaria (94469541) Idiopathic urticaria (L50.1) Active confirmed Problem Dyspnea (588354438) Dyspnea, unspecified (R06.00) Active confirmed Problem Angioneurotic edema (22999651) Angioneurotic edema, initial encounter (T78.3XXA) Active confirmed Plan Of Treatment Pending Test Test Name Order Date PERCUTANEOUS SKIN TEST 05/11/2017 BRONCHO EVAL 05/11/2017 Spirometry 05/11/2017 Insurance Providers Payer Name Payer Address Payer Phone Subscriber Number Group Number Insured Name Patient Relationship to Insured Coverage Start Date Coverage End Date CIG[employer] [address] [place] [id number] Hallie Lim Self - patient is the insured Medical (General) History Medical History History ICD Code celiac disease 2015 Surgical History Surgery Date(Month/Year) appendectomy 2013 Hospitalization History Reason Date(Month/Year) ueterine infection post childbirth 2013
[2025-01-13 11:46] LABS: Hematocrit 33.2 % (37.0-47.0)
== END 2025-01-13 11:08 | disposition home or self-care (01) ==
LOC: ANHLAB 11:09
PROVIDERS: PCP Family Medicine; Visit Provider Obstetrics & Gynecology
DX: N94.6 Dysmenorrhea, unspecified (principal)
CPT/HCPCS: 36415; 85014; 85018; 86850; 86900; 86901

== ENCOUNTER 2025-01-20 02:42 | Day surgery (SDC) | payer BC, SELFPAY ==
[2025-01-09 15:20] VITALS: BMI 39.5
--- NOTE | 2025-01-09 15:24 | SUR.PREOP ---
Report to the Outpatient Waiting Room, entrance under the green pavilion located off [facility], at time _0930_ on date _01/20/2025_. Planned Procedure Time: _1130_.? Time changes happen often and if your time is changed the preop area will call you the afternoon before. - You and your visitor will be asked to self-screen and do not enter if you have any COVID symptoms. Please call surgeon if you need to reschedule. - A mask is optional within the hospital at this time. Patients may have clear liquids (water, carbonated beverages, clear teas, apple juice) until 3 hours prior to surgery with a maximum of 20 ounces. - No food from midnight until time of surgery and no smoking, or chewing tobacco (or any form of nicotine). No chewing gum, candy or mints. Take only the following medications with a SIP of water on the morning of surgery: _medroxyprogesterone_ DO NOT STOP ANY OF YOUR OTHER PRESCRIPTION MEDICATIONS PRIOR TO SURGERY EXCEPT THE FOLLOWING Hold all vitamins and supplements for 3 days per anesthesiologist. Medications to discontinue per physician _tranexamic acid per Dr. Mlily Ovalles_ Please no make-up, nail cypriot, hairspray, perfume, deodorant, or body powder the day of surgery.? No jewelry (including any body piercings) or valuables the day of surgery, leave them at home.? Please take a shower or bath the night before, or the morning of, surgery with an antibacterial soap.? Wear comfortable, loose fitting clothing. - Jewelry must be removed prior to entering the operating room.? Rings and piercings that are not removed may be cut off. - The hospital will not accept responsibility for valuables.? - Please leave all valuables, including medications, at home the day of surgery. If you are going home after surgery, a licensed [employer] company driver must drive you home.? - NO public transportation without another adult if you receive anesthesia. - We recommend that an adult stay with you for 24 hours following discharge. - We also recommend that you do not drive, make important decision, drink alcoholic beverages, or take any drugs that were not prescribed by your health care provider for at least 24 hours after your discharge time. Follow any additional instructions given to you from your surgeon. Telephone instructions given to _Hallie_and asked if any additional questions and then verbalized understanding. Patient advised to call surgeon office or pre surgery nurse liaison [phone] if any additional questions.
--- NOTE | 2025-01-17 13:03 | P.HP_ITS ---
H&P: HPI History of Present Illness Date/Time: 01/17/25 13:03 Chief Complaint: This patient complains of dysmenorrhea irregular bleeding pelvic pain and there is suspected uterine polyp Narrative: This very pleasant 29 female is admitted for laparoscopy hysteroscopy/dilatation curettage/polypectomy. She complains of pain discomfort dyspareunia. She has a history of an ectopic. Ultrasound shows a thickened area uterus that looks suspicious for a polyp. She is also having heavy bleeding will undergo hysteroscopy D and C after risks and benefits of these procedures were reviewed including but not exclusive of , aspiration pneumonia, bleeding, transfusion, perforation injury to bowel, bladder, ureters, or other internal organs with the need for open laparotomy. She received the ACOG handouts enti tled laparoscopy/hysteroscopy//dilatation and curettage respectively. She had all questions answered. She asked to proceed. Review of Systems Review of Systems: All systems reviewed & are unremarkable except as noted in HPI and below PMFSH Past Medical History Medical History Endometriosis History of smoking for 1-2 years History of bronchitis History of GI bleed Morbid obesity Abnormal vaginal bleeding HSV-2 (herpes simplex virus 2) infection Anxiety Surgical History Surgical History History of appendectomy Family History Family History Mother Cerebrovascular accident Social History Social History Smoking packs per day: 0.25 Smoking cigarettes per day: 5.0 Years smoked: 1 Smoking pack-years: 0.25 Smoking status: Former smoker Tobacco type: cigarettes Second hand tobacco smoke exposure: No Smoking end date: 09/28/15 Alcohol intake: never Drinks per week: 0 Alcohol use details: VERY RARE Substance use: never Substance use type: does not use Living arrangements: with family Additional living arrangements comments: with and daughter Occupation/Education: occupation Gender identity (if verbalized by the patient): Female Spiritual care concerns: No Meds Home Medications and Allergies Home Medications ?Medication ?Instructions ?Recorded ?Confirmed ?Type medroxyprogesterone 10 mg tablet 10 mg PO DAILY 10/29/23 01/09/25 History tranexamic acid 650 mg tablet 1,300 mg PO TID PRN bleeding 01/09/25 01/09/25 History Allergies Allergy/AdvReac Type Severity Reaction Status Date / Time amoxicillin Allergy Unknown Vomiting Verified 01/09/25 15:12 gluten Allergy Unknown Other Verified 01/09/25 15:12 Exam Const: General: cooperative, healthy appearing and comfortable Nutritional Appearance: overweight Orientation/consciousness: oriented to person, oriented to place and oriented to time HENMT: Head: normal to inspection Resp: Effort & Inspection: normal respiratory effort Cardio: Rate: regular rate Rhythm: regular rhythm Heart sounds: S1 normal heart sound present and S2 normal heart sound present GI: Inspection: normal to inspection Percussion: Yes normal to percussion : External Female Exam: normal external appearance Speculum Exam - Vagina: normal appearance of the vagina Speculum Exam - Cervix: normal appearance of the cervix Bimanual exam- vagina & uterus: enlarged Bimanual Exam- Adnexa, other: tender bilaterally Assessment and Plan Assessment and plan (1) Abnormal vaginal bleeding: Code(s): N93.9 - Abnormal uterine and vaginal bleeding, unspecified Status: Acute (2) Pelvic pain: Code(s): R10.2 - Pelvic and perineal pain Status: Acute Plan Proceed with laparoscopy/hysteroscopy/dilatation curettage/possible polypectomy
[2025-01-20] VITALS (10 sets, daily range): BP systolic 106–142; BP diastolic 55–89; PULSE 54–98; RESP 12–16; TEMP 36.6–37; O2SAT 94–100; BMI 42.7
--- OUTSIDE RECORDS SUMMARY | 2025-01-20 02:45 | XMS_ITS | Clinical Summary ---
Author Organization [facility] [employer] Address [address] [place] [address] Care Team Providers Care Station Cook Name Role Phone Manas Reza MD Primary Care Provider [phone] Source Comments [facility],non-owned Affiliates and Associated Physician Practices is amultiple site organization consisting of ambulatory clinics and hospital sitesin [place], [place], [place] and [place]. This disclosure is being madepursuant to the Care Everywhere program and may not contain all information available regarding this patient. Last updated 18.[facility] [employer] Allergies Active Allergy Reactions Criticality Noted Date [...] on file Legal Sex Female 6:59 AM [employer]OUNT [employer] Gender Identity Not on file Sexual Orientation [...] patient's age to complete this topic Insurance [employer] CIGNA ON LICENSE OF [facility] SELF PAY NO INSURANCE Member Subscriber Plan / Payer (Ef fective for All Dates) Name:Isha Lim Member ID:Not on file Relation to Subscriber:Not on file Name:ISHA LIM Subscriber ID:Not on file Address: [address] [place] [address] Payer ID:Not on file Group ID:Not on file Type:Self Pay Address: [place], [place] BCBS/BL[employer] [place] SELF PAY NO INSURANCE Member Subscriber Plan / Payer (Ef fective for All Dates) Name:Isha Lim Member ID:Not on file Relation to Subscriber:Not on file Name:ISHA LIM Subscriber ID:Not on file Address: [place] [address] Payer ID:Not on file Group ID:Not on file Type:Self Pay Address: [place], [place] BCBS/[employer] [place] SELF PAY NO INSURANCE Member Subscriber Plan / Payer (Ef fective for All Dates) Name:Isha Lim Member ID:Not on file Relation to Subscriber:Not on file Name:LIMMERCEDI Subscriber ID:Not on file Address: [facility] [place] [address] Payer ID:Not on file Group ID:Not on file Type:Self Pay Address: [place], [place] Care Teams Station Cook Relationship Specialty Start Date End Date Manas Reza MD [address] [place] [address] PCP - General Family Medicine 06/10/16
--- OUTSIDE RECORDS SUMMARY | 2025-01-20 02:45 | XMS_ITS | Clinical Summary ---
Author Organization [facility] Address [address] [place] [address] Care Team Providers Care Irrigation Teacher Name Role Phone [facility], External Provider Primary Care Provider U navailable [...] Diagnosed Date Suspected endometritis, trip le abx (bfd-gjni-gmbwpu), cbc/cmp pending, blood cultures if febrile 07/04/2014 [...] 2018 HPV/Cotest (21-29) 2018 PAP SMEAR 2018 INFLUENZA VACCINE (#1) [...] Chlamydia trachomatis detected. No Neisseria gonorrhoeae detected. [facility] [employer] [facility] Specimen from genital system (specimen) (Endocervical) 05/27/2014 7:44 PM CDT 05/27/2014 8:18 PM CDT Comment:ENDOCERVICAL Narrative [facility]OR[facility]ORY [facility] - 05/30/2014 2:37 PM CDT All [...] MICRO - GEN ORDERABLES COM Final Result [facility]# [id number] [address] [place] [address] from Last 3 Months or Most Recently Relevant to Health Maintenance Insurance BLUE ACCESS CHOICE Advance Directives For more information, please contact: [phone] * Full Code (Latest Code Status on [...] 1:05 PM 05/25/2014 6:27 PM Care Teams Irrigation Teacher Relationship Specialty Start Date End Date [facility], External Provider [address] [place] [address] PCP - General 03/17/14
--- OUTSIDE RECORDS SUMMARY | 2025-01-20 02:45 | XMS_ITS | Clinical Summary ---
Author Organization [facility] Address [address] [place] [address] Care Team Providers Care City Administrator Name Role Phone Manas Reza MD Primary [...] Department Care Team Description 11/16/2024 Results Follow-Up [facility] Gastroenterology [address] [place] [address] Ash Young MD 10/28/2024 8:00 AM [facility] Telemedicine [facility] G[facility]ology [address] Advanced [address] 12th [place] [address] [place] [address] Hepatic steatosis (Primary Dx); [...] on file Legal Sex Female 2:32 AM CORRAL BOSS Gender Identity Not on file Sexual Orientation Not on file Obstetrics History Last Filed Vital Signs Vital Sign Reading Time Taken Comments Blood Pressure 121/86 10/13/2024 3:41 PM CORRAL BOSS Pulse 68 10/13/2024 3:41 PM CORRAL BOSS Temperature 36.6 C (97.9 F) 10/13/2024 3:41 PM CORRAL BOSS Respiratory Rate 18 10/13/2024 3:41 PM CORRAL BOSS Oxygen Saturation 98% 10/13/2024 3:41 PM CORRAL BOSS Inhaled Oxygen Concentration - - Weight 113.6 kg (250 lb 6.4 oz) 10/13/2024 3:41 PM CORRAL BOSS Height 162.6 cm (5' 4.02 ) 10/13/2024 3:41 PM CS T Body Mass Index 42.96 10/13/2024 3:41 PM CORRAL BOSS Plan of Treatment Health Maintenance Due Date [...] ACIDS, FREE Routine 11/03/2024 11: 11 AM CORRAL BOSS HEMOGLOBIN A1C Routine 11/03/2024 11:11 AM CORRAL BOSS NAFLD (nonalcoholic fatty liver disease) Elevated LFTs INSULIN, TOTAL Routine 11/03/2024 11:11 AM CORRAL BOSS NAFLD (nonalcoholic fatty liver disease) Elevated LFTs LIPID PANEL Routine 11/03/2024 11:11 AM CORRAL BOSS NAFLD (nonalcoholic fatty liver disease) Elevated LFTs IGM Routine 11/03/2024 11:11 AM CORRAL BOSS NAFLD (nonalcoholic fatty liver disease) Elevated LFTs IGG Routine 11/03/2024 11:11 AM CORRAL BOSS NAFLD (nonalcoholic fatty liver disease) Elevated LFTs IGA Routine 11/03/2024 11:11 AM CORRAL BOSS NAFLD (nonalcoholic fatty liver disease) Elevated LFTs BILIRUBIN, DIRECT Routine 11/03/2024 11: 11 AM CORRAL BOSS NAFLD (nonalcoholic fatty liver disease) Elevated LFTs CBC WITH AUTO DIFFERENTIAL Routine 11/03/2024 11:11 AM CORRAL BOSS NAFLD (nonalcoholic fatty liver disease) Elevated LFTs COMPREHENSIVE METABOLIC PANEL Routine 11/03/2024 11:11 AM CORRAL BOSS NAFLD (nonalcoholic fatty liver disease) Elevated LFTs HEPATITIS C ANTIBODY Routine 06/10/2024 11:02 AM CDT Elevated LFTs Celiac disease Abdominal pain from Last 3 Months or Most Recently Relevant to Health Maintenance Results * (ABNORMAL) CBC with auto differential (11/03/2024 11:11 AM CORRAL BOSS) WBC 10.4 3.8 - 10.8 Thousand/u L [...] [facility] Blood 11/03/2024 11:1 1 AM CORRAL BOSS 11/03/2024 11:13 AM CORRAL BOSS Ash Young MD LAB BLOOD ORDERABLES Fin al Result [facility] [address] [place] [address] * Fatty acids, free (11/03/2024 11:11 AM CORRAL BOSS) Pathologist [facility] Fatty acids, free 0.40 0.07 - 0.88 mmol/L [facility], 11/03/2024 11:1 1 AM CORRAL BOSS 11/03/2024 11:13 AM CORRAL BOSS Ash Young MD LAB BLOOD ORDERABLES Fin al Result [facility], [address] [place] [address] * (ABNORMAL) Insulin, total (11/03/2024 11:11 AM CORRAL BOSS) INSULIN 28.1(H) uIU/mL [facility] Comment: Reference Range < or = 18.4 Risk: Optimal < or = 18.4 Moderate NA High >18.4 Adult cardiovascular event risk category cut points (optimal, moderate, high) are based on Insulin Reference Interval studies performed at [facility] in 2021. Blood 11/03/2024 11:1 1 AM CORRAL BOSS 11/03/2024 11:13 AM CORRAL BOSS Ash Young MD LAB BLOOD ORDERABLES Fin al Result Performing Organization Address [facility] Co de Phone Number [facility] [address] [place] [address] * (ABNORMAL) Hemoglobin A1c (11/03/2024 11:11 AM CORRAL BOSS) Hgb A1C 6.1(H) <5.7 % of total [...] copy faxed has been acknowledged. Queued to: [id number] Blood 11/03/2024 11:1 1 AM CORRAL BOSS 11/03/2024 11:13 AM CORRAL BOSS Ash Young MD LAB BLOOD ORDERABLES Fin al Result [facility] [address] [place] [address] * IgA (11/03/2024 11:11 AM CORRAL BOSS) Immunoglobulin A 226 47 - 310 mg/dL [facility] Blood 11/03/2024 11:1 1 AM CORRAL BOSS 11/03/2024 11:13 AM CORRAL BOSS Ash Young MD LAB BLOOD ORDERABLES Fin al Result Performing Organization Address [facility] Co de Phone Number [facility] [address] [place] [address] * IgM (11/03/2024 11:11 AM CORRAL BOSS) Immunoglobulin M 218 50 - 300 mg/dL [facility] Blood 11/03/2024 11:1 1 AM CORRAL BOSS 11/03/2024 11:13 AM CORRAL BOSS Ash Young MD LAB BLOOD ORDERABLES Fin al Result Performing Organization Address [facility] Co de Phone Number [facility] [address] [place] [address] * IgG (11/03/2024 11:11 AM CORRAL BOSS) Immunoglobulin G 995 600 - 1,640 mg/dL [facility] Blood 11/03/2024 11:1 1 AM CORRAL BOSS 11/03/2024 11:13 AM CORRAL BOSS Ash Young MD LAB BLOOD ORDERABLES Fin al Result Performing Organization Address [facility] Co de Phone Number [facility] [address] [place] [address] * Bilirubin, direct (11/03/2024 11:11 AM CORRAL BOSS) Bilirubin, direct 0.1 < OR = 0.2 mg/dL [facility] Blood 11/03/2024 11:1 1 AM CORRAL BOSS 11/03/2024 11:13 AM CORRAL BOSS Ash Young MD LAB BLOOD ORDERABLES Fin al Result Performing Organization Address City/[facility]/ZIP Co de Phone Number [facility] [address] [place] [address] * (ABNORMAL) Lipid panel (11/03/2024 11:11 AM CORRAL BOSS) Pathologist [facility] Cholesterol 174 <200 mg/dL [facility] [...] LDL-C. Shane SS et al. TODD. 2013;310(19): 5717-5116 (http://education.[employer]/faq/QUV088) Chol/HDL ratio 4.7 <5.0 (calc) [facility] Non-HDL, (LDL+VLDL) 137(H) <130 mg/dL (calc) [facility] Comment: For patients with diabetes plus 1 major ASCVD risk factor, treating to a non-HDL-C goal of <100 mg/dL (LDL-C of <70 mg/dL) is considered a therapeutic option. Blood 11/03/2024 11:1 1 AM CORRAL BOSS 11/03/2024 11:13 AM CORRAL BOSS Ash Young MD LAB BLOOD ORDERABLES Fin al Result Performing Organization Address City/[facility]/ZIP Co de Phone Number [facility] [address] [address] * (ABNORMAL) Comprehensive metabolic panel (11/03/2024 11:11 AM CORRAL BOSS) Glucose 97 65 - 99 mg/dL [facility] [...] [facility] Blood 11/03/2024 11:1 1 AM CORRAL BOSS 11/03/2024 11:13 AM CORRAL BOSS us Ash Young MD LAB BLOOD ORDERABLES Fin al Result [facility] [address] [place] [address] * Hepatitis C antibody Blood (06/10/2024 11:02 AM CDT) Hep C Ab NON-REACTI VE NON-REACT [facility]N [facility] Comment: HCV antibody was non-reactive. There is no laboratory evidence of HCV infection. In most cases, no further action is required. However, if recent HCV exposure is suspected, a test for HCV RNA (test code 54621) is suggested. For additional information please refer to http://education.[employer]/faq/VSQ82c4 (This link is being provided for informational/ educational purposes only.) Blood 06/10/2024 11:0 2 AM CDT 06/10/2024 11:03 AM CDT Narrative [facility] - 06/15/2024 5:30 AM CDT FASTING:NO FASTING: NO Nicci Edwards MD LAB MICROBIOLOGY - [facility] Final Result [facility] [address] [place] [address] from Last 3 Months or Most Recently Relevant to Health Maintenance Insurance [facility] Screen Fix [place] CHOICE [employer]IG[employer] ANTHEM ACCESS CHOICE Advance Directives For more information, please contact: [phone] * Full Code (Latest Code Status on File) Date Activated Date Inactivated Comments 06/28/2024 1:20 PM 06/28/2024 6:50 PM * Full Code Date Activated Date Inactivated Comments 05/21/2021 9:13 PM 05/22/2021 7:39 PM * Full Code Date Activated Date Inactivated Comments 05/20/2021 8:53 AM 05/20/2021 3:23 PM Care Teams City Administrator Relationship Specialty Start Date End Date Manas Reza MD [address] [facility] [address] [place] [address] PCP - General 05/21/21
--- OUTSIDE RECORDS SUMMARY | 2025-01-20 02:45 | XMS_ITS | Referral Summary ---
Author Organization [facility] Address [address] [place] [address] Care Team Providers Care Liquefied Petroleum Gasfitter Name Role Phone Manas Reza MD Primary Care Provider Encounters Date Type Department Care Team Description 11/16/2024 Results Follow-Up [facility] G[facility] [address] [facility] [address] [facility] 2nd [address] [place] [address] Ash Young MD 10/28/2024 8:00 AM PRUNER Telemedicine [facility]enter[facility] [address] [facility] 12[address] [place] [address] [place] [address] Hepatic steatosis (Primary Dx); [...] on file Legal Sex Female 2:32 AM PRUNER Gender Identity Not on file Sexual Orientation Not on file Last Filed Vital Signs Vital Sign Reading Time Taken Comments Blood Pressure 121/86 10/13/2024 3:41 PM PRUNER Pulse 68 10/13/2024 3:41 PM PRUNER Temperature 36.6 C (97.9 F) 10/13/2024 3:41 PM PRUNER Respiratory Rate 18 10/13/2024 3:41 PM PRUNER Oxygen Saturation 98% 10/13/2024 3:41 PM PRUNER Inhaled Oxygen Concentration - - Weight 113.6 kg (250 lb 6.4 oz) 10/13/2024 3:41 PM PRUNER Height 162.6 cm (5' 4.02 ) 10/13/2024 3:41 PM CS T Body Mass Index 42.96 10/13/2024 3:41 PM PRUNER Plan of Treatment Not on file Procedures Procedure Name Priority Date/Time Associated Diagnosis Comments FATTY ACIDS, FREE Routine 11/03/2024 11: 11 AM PRUNER HEMOGLOBIN A1C Routine 11/03/2024 11:11 AM PRUNER NAFLD (nonalcoholic fatty liver disease) Elevated LFTs INSULIN, TOTAL Routine 11/03/2024 11:11 AM PRUNER NAFLD (nonalcoholic fatty liver disease) Elevated LFTs LIPID PANEL Routine 11/03/2024 11:11 AM PRUNER NAFLD (nonalcoholic fatty liver disease) Elevated LFTs IGM Routine 11/03/2024 11:11 AM PRUNER NAFLD (nonalcoholic fatty liver disease) Elevated LFTs IGG Routine 11/03/2024 11:11 AM PRUNER NAFLD (nonalcoholic fatty liver disease) Elevated LFTs IGA Routine 11/03/2024 11:11 AM PRUNER NAFLD (nonalcoholic fatty liver disease) Elevated LFTs BILIRUBIN, DIRECT Routine 11/03/2024 11: 11 AM PRUNER NAFLD (nonalcoholic fatty liver disease) Elevated LFTs CBC WITH AUTO DIFFERENTIAL Routine 11/03/2024 11:11 AM PRUNER NAFLD (nonalcoholic fatty liver disease) Elevated LFTs COMPREHENSIVE METABOLIC PANEL Routine 11/03/2024 11:11 AM PRUNER NAFLD (nonalcoholic fatty liver disease) Elevated LFTs HEPATITIS C ANTIBODY Routine 06/10/2024 11:02 AM CDT Elevated LFTs Celiac disease Abdominal pain from Last 3 Months or Most Recently Relevant to Health Maintenance Results * (ABNORMAL) CBC with auto differential (11/03/2024 11:11 AM PRUNER) WBC 10.4 3.8 - 10.8 Thousand/u L [...] [facility] Blood 11/03/2024 11:1 1 AM PRUNER 11/03/2024 11:13 AM PRUNER Ash Young MD LAB BLOOD ORDERABLES Fin al Result Performing Organization Address City/[facility]/ZIP Co de Phone Number [facility] [address] [address] * Fatty acids, free (11/03/2024 11:11 AM PRUNER) Pathologist [facility] [place] Fatty acids, free 0.40 0.07 - 0.88 mmol/L [facility], 11/03/2024 11:1 1 AM PRUNER 11/03/2024 11:13 AM PRUNER Ash Young MD LAB BLOOD ORDERABLES Fin al Result Performing Organization Address [facility] de Phone Number [facility], [address] [place] [address] * (ABNORMAL) Insulin, total (11/03/2024 11:11 AM PRUNER) Pathologist [facility] [place] INSULIN 28.1(H) uIU/mL [facility] Comment: Reference Range < or = 18.4 Risk: Optimal < or = 18.4 Moderate NA High >18.4 Adult cardiovascular event risk category cut points (optimal, moderate, high) are based on Insulin Reference Interval studies performed at [facility] in 2021. Blood 11/03/2024 11:1 1 AM PRUNER 11/03/2024 11:13 AM PRUNER Ash Young MD LAB BLOOD ORDERABLES Fin al Result Performing Organization Address [facility] Co de Phone Number [facility] [address] [address] * (ABNORMAL) Hemoglobin A1c (11/03/2024 11:11 AM PRUNER) Pathologist [facility] [place] Hgb A1C 6.1(H) <5.7 % of total [...] copy faxed has been acknowledged. Queued to: [id number] Blood 11/03/2024 11:1 1 AM PRUNER 11/03/2024 11:13 AM PRUNER Ash Young MD LAB BLOOD ORDERABLES Fin al Result Performing Organization Address City/[facility] Co de Phone Number [facility] [address] [place] [address] * IgA (11/03/2024 11:11 AM PRUNER) Immunoglobulin A 226 47 - 310 mg/dL [facility] Blood 11/03/2024 11:1 1 AM PRUNER 11/03/2024 11:13 AM PRUNER Ash Young MD LAB BLOOD ORDERABLES Fin al Result Performing Organization Address [facility] Co de Phone Number [facility] [address] [place] [address] * IgM (11/03/2024 11:11 AM PRUNER) Immunoglobulin M 218 50 - 300 mg/dL [facility] Blood 11/03/2024 11:1 1 AM PRUNER 11/03/2024 11:13 AM PRUNER Ash Young MD LAB BLOOD ORDERABLES Fin al Result Performing Organization Address [facility] Co de Phone Number [facility] [address] [place] [address] * IgG (11/03/2024 11:11 AM PRUNER) Immunoglobulin G 995 600 - 1,640 mg/dL [facility] Blood 11/03/2024 11:1 1 AM PRUNER 11/03/2024 11:13 AM PRUNER Ash Young MD LAB BLOOD ORDERABLES Fin al Result Performing Organization Address [facility] Co de Phone Number [facility] [address] [place] [address] * Bilirubin, direct (11/03/2024 11:11 AM PRUNER) Bilirubin, direct 0.1 < OR = 0.2 mg/dL [facility] Blood 11/03/2024 11:1 1 AM PRUNER 11/03/2024 11:13 AM PRUNER Ash Young MD LAB BLOOD ORDERABLES Fin al Result Performing Organization Address [facility] de Phone Number [facility] [address] [place] [address] * (ABNORMAL) Lipid panel (11/03/2024 11:11 AM PRUNER) Cholesterol 174 <200 mg/dL [facility] [...] LDL-C. Shane MORA et al. TODD. 2013;310(19): 4187-7660 (http://education.Wistone.Zymergen/faq/MPB057) Chol/HDL ratio 4.7 <5.0 (calc) [facility] Non-HDL, (LDL+VLDL) 137(H) <130 mg/dL (calc) [facility] Comment: For patients with diabetes plus 1 major ASCVD risk factor, treating to a non-HDL-C goal of <100 mg/dL (LDL-C of <70 mg/dL) is considered a therapeutic option. Blood 11/03/2024 11:1 1 AM PRUNER 11/03/2024 11:13 AM PRUNER us Ash Young MD LAB BLOOD ORDERABLES Fin al Result [facility] [address] [address] * (ABNORMAL) Comprehensive metabolic panel (11/03/2024 11:11 AM PRUNER) Glucose 97 65 - 99 mg/dL [facility] Blood 11/03/2024 11:1 1 AM PRUNER 11/03/2024 11:13 AM PRUNER Ash Young MD LAB BLOOD ORDERABLES Fin al Result Performing Organization Address [facility] Co de Phone Number [facility] [address] [address] * Hepatitis C antibody Blood (06/10/2024 11:02 AM CDT) Hep C Ab NON-REACTI VE NON-REACT TARYN [facility] Comment: HCV antibody was non-reactive. There is no laboratory evidence of HCV infection. In most cases, no further action is required. However, if recent HCV exposure is suspected, a test for HCV RNA (test code 79137) is suggested. For additional information please refer to http://education.Foods You Can/faq/JIU76h5 (This link is being provided for informational/ educational purposes only.) Blood 06/10/2024 11:0 2 AM CDT 06/10/2024 11:03 AM CDT Narrative [facility] - 06/15/2024 5:30 AM CDT FASTING:NO FASTING: NO Nicci Edwards MD LAB MICROBIOLOGY - GENERAL [place] BUNN Final Result Performing Organization Address [facility] Co de Phone Number [email or web address] [address] [address] from Last 3 Months or Most Recently Relevant to Health Maintenance Insurance ANTHEM ACCESS CHOICE [employer] ANTHEM ACCESS CHOICE Advance Directives For more information, please contact: [phone] * Full Code (Latest Code Status on File) Date Activated Date Inactivated Comments 06/28/2024 1:20 PM 06/28/2024 6:50 PM * Full Code Date Activated Date Inactivated Comments 05/21/2021 9:13 PM 05/22/2021 7:39 PM * Full Code Date Activated Date Inactivated Comments 05/20/2021 8:53 AM 05/20/2021 3:23 PM Care Teams [employer]ied Pet[employer] Gasfitter Relationship Specialty Start Date End Date Manas Reza MD [address] [address] PCP - General 05/21/21
--- NOTE | 2025-01-20 07:24 | WPDHPUPDATE1 ---
History and Physical Update Update Date/Time: 01/20/25 07:24 History and Physical has been reviewed, including an updated exam of the patient. There are NO changes in the patient's condition. Risks, benefits, and alternatives have been discussed and questions answered. Patient agrees to proceed with procedure.
--- NOTE | 2025-01-20 10:01 | P.PNAN_ITS ---
Anes - Initial Pre Proc Eval Procedure: Operation Date: 01/20/25 11:30 Proposed Procedures p Diagnostic Laparoscopy, Hysteroscopy, Dilation and Curettage with Polypectomy - Yonny Ovalles MD Date/Time: 01/20/25 10:01 Surgeon: Yonny Ovalles MD Pre Op Diagnosis: Dysmenorrhea,Irg Bleed,Pelvic Pain,Uterine Polyp Patient Data Age: 29 Gender: F Height: 1.63 m Weight: 104.54 kg Allergies Allergy/AdvReac Type Severity Reaction Status Date / Time amoxicillin Allergy Unknown Vomiting Verified 01/09/25 15:12 gluten Allergy Unknown Other Verified 01/09/25 15:12 Home Medications ?Medication ?Instructions ?Recorded ?Confirmed ?Type medroxyprogesterone 10 mg tablet 10 mg PO DAILY 10/29/23 01/09/25 History tranexamic acid 650 mg tablet 1,300 mg PO TID PRN bleeding 01/09/25 01/09/25 History hydrocodone 5 mg-acetaminophen 325 1 tablet PO Q4H PRN pain #20 tabs 01/20/25 Rx mg tablet Patient hx anesthesia problems: none Family hx anesthesia problems: none Results Review: All pre-operative results and documents have been reviewed as part of the pre- operative evaluation. [facility] Past Medical History Medical History Endometriosis History of smoking for 1-2 years History of bronchitis History of GI bleed Morbid obesity Abnormal vaginal bleeding HSV-2 (herpes simplex virus 2) infection Anxiety Surgical History Surgical History History of appendectomy Family History Family History Mother Cerebrovascular accident Social History Social History Smoking packs per day: 0.25 Smoking cigarettes per day: 5.0 Years smoked: 0.5 Smoking pack-years: 0.13 Smoking status: Former smoker Tobacco type: cigarettes Second hand tobacco smoke exposure: No Smoking end date: 09/28/15 Alcohol intake: never Drinks per week: 0 Alcohol use details: VERY RARE Substance use: never Substance use type: does not use Living arrangements: with family Additional living arrangements comments: with and daughter Occupation/Education: occupation Gender identity (if verbalized by the patient): Female Spiritual care concerns: No Anes - Eval Final PreProcedure Day of Procedure 01/20/25 10:01 Patient weight: morbidly obese Heart: regular rate and rhythm Lungs: clear to auscultation Airway: Mallampati scale class II Neurological: alert and oriented Last oral intake: >/= 8 hours ASA classification: III Emergent: no Anesthetic plan: proceed Anesthesia type and monitoring: general ETT and standard monitoring Results Review: All pre-operative results and documents have been reviewed as part of the pre- operative evaluation. Informed Consent: The patient's anesthetic plan and its attendant risks and benefits were discussed with the patient/family/POA. Questions were solicited and answers provided to the satisfaction of the patient/family/POA.
[2025-01-20] MEDS: SCOPOLAMINE 1 MG PATCH 1 PATCH TRANSDERM (10:14)
[2025-01-20 10:15] LABS: BEDSIDEPREGUCG Negative (Negative)
[2025-01-20] MEDS: LACTATED RINGERS 1,000 ML 30 ML IV CONT ×2 (10:15→12:00)
[2025-01-20] MEDS: KETOROLAC 15 MG/ML VIAL (*BKC) IV PUSH (10:15)
[2025-01-20] MEDS: ACETAMINOPHEN 500 MG TABLET 1000 MG PO (10:15)
--- NOTE | 2025-01-20 11:38 | P.OP_ITS ---
Procedure Note - Detailed Date of Procedure 01/20/25 Pre-op Diagnosis Dysmenorrhea,Irg Bleed,Pelvic Pain,Uterine Polyp Post-op Diagnosis Other (Pelvic pain/irregular bleeding/endometriosis/left ovarian cyst) Procedure Performed Laparoscopy with destruction of endometriosis/destruction of left ovarian cyst. /hysteroscopy/dilatation curettage Surgeon Yonny Ovalles MD Anesthesia General Indications 29-year-old female with pain and irregular bleeding and thickened endometrium ultrasound Findings Normal-appearing uterus. Normal-appearing tubes bilaterally. Left ovarian cyst benign in nature. Blistered pot endometriosis on the left uterosacral ligament. On hysteroscopy thick irregular endometrial tissue was seen but no evidence of definitive polyp. Description of Procedure Patient was prepped draped in normal sterile fashion placed in the dorsal lithotomy position. Under excellent general endotracheal anesthesia weighted speculum placed in posterior fornix vagina. Anterior lip of the cervix grasped with a single-tooth tenaculum. Villegas's cannula was inserted the cervix and attached to the single-tooth. This was to be used later for uterine manipulation. After emptying the bladder clear urine of 300cc a weighted speculum was removed the gloves were changed. A supraumbilical incision made the Veress needle passed in the abdomen. Abdomen filled with CO2 gas [id number]. The 5mm trocar was advanced under direct visualization assuring no injury. Patient placed in Trendelenburg and a suprapubic incision made. The 5mm trocar advanced under direct visualization assuring no injury. The above findings were noted. The left ovarian cyst was opened in linear fashion with monopolar cautery and drained of clear fluid. The areas of blistered endometriosis along the left uterosacral ligament were cauterized at 35 w per 2nd. Irrigation undertaken until clear. No other abnormalities were seen. Lower site removed. The gas removed from the abdomen. The upper site removed the incisions closed with 4 Monocryl and glue. Attention was turned to the hysteroscopy portion. The uterus sounded to7.5cm. Serial dilatation fragmented performed followed by passage of the 5mm visualizin g hysteroscope using saline as visualizing medium. Thick irregular endometrial tissue was seen but no evidence of definitive polyp. Uterus was then scraped over the entire 360? moderate amount of tissue until good grating sound was heard. The instruments then withdrawn. Blood loss estimated 5cc. The patient was awakened and went to recovery in satisfactory condition. All sponge, needle, instrument counts were correct. There were no immediate complications Estimated Blood Loss 5 Drains No Packing No Pathology Yes Complications No immediate complications Condition Stable Disposition PACU
[2025-01-20] MEDS: fentaNYL CITRATE INJ (*CRX) 100 MCG/2 ML VIAL 25 MCG IV PUSH ×8 (11:56→12:43)
[2025-01-20] MEDS: oxyCODONE HCL (*CRX) 5 MG TAB IR PO (13:19)
== END 2025-01-20 14:28 | disposition home or self-care (01) ==
PROVIDERS: PCP Family Medicine; Visit Provider Obstetrics & Gynecology
PROC: 0UDB8ZZ Extraction of Endometrium, Via Natural or Artificial Opening Endoscopic (ICD-10-PCS; CPT 58558; principal; 2025-01-20 11:30)
DX: N80.3C2 Endometriosis of the left uterosacral ligament, unspecified depth (principal); N83.202 Unspecified ovarian cyst, left side; N94.6 Dysmenorrhea, unspecified; R10.2 Pelvic and perineal pain; Z87.891 Personal history of nicotine dependence; E66.01 Morbid (severe) obesity due to excess calories; Z68.41 Body mass index [BMI] 40.0-44.9, adult
CPT/HCPCS: 58563; 58662; 88305; A9270; J1100; J1885; J2003; J2250; J2405; J2704; J3010; J7030; J7120

== ENCOUNTER 2025-02-24 14:14 | Outpatient (CLI) | payer BC, SELFPAY ==
--- NOTE | ~2025-02-24 | XR_ITS ---
XR knee LT 3V 02/24/2025 14:54 Indication: Left knee pain Procedure: 3 views left knee Comparison: 07/29/2012 Findings: No fracture, subluxation or dislocation. No joint effusion. No foreign bodies. Impression: 1: No significant bone or joint abnormality. Reviewed, dictated and finalized at location A. Impression: 1: No significant bone or joint abnormality.
== END 2025-02-24 14:15 | disposition home or self-care (01) ==
LOC: MICIMG 14:15
PROVIDERS: PCP Family Medicine; Visit Provider Physician Assistant
DX: M25.562 Pain in left knee (principal)
CPT/HCPCS: 73562

== ENCOUNTER 2025-04-14 09:06 | Outpatient (CLI) | payer BC, SELFPAY ==
--- NOTE | ~2025-04-14 | MR_ITS ---
MRI of the left knee Clinical history: Instability Technique: Coronal proton density and proton density-weighted images, sagittal proton-density and T2 fat-sat images, and axial proton-density fat-saturated images were acquired. Findings: Anterior and posterior cruciate ligaments are intact. Medial collateral ligament and the la teral collateral ligament complex are intact. Popliteus tendon is intact. Medial and lateral menisci are intact, without evidence of tear. Articular cartilage is well preserved throughout the knee. Bone marrow signals are unremarkable. Extensor mechanism is intact. No joint effusion or Sarah's cyst. Impression: No significant abnormality seen. Reviewed, dictated and finalized at location . Impression: No significant abnormality seen.
== END 2025-04-14 09:07 | disposition home or self-care (01) ==
LOC: MICIMG 09:06
PROVIDERS: PCP Family Medicine; Visit Provider Physician Assistant
DX: M25.362 Other instability, left knee (principal); M25.562 Pain in left knee; S89.92XA Unspecified injury of left lower leg, initial encounter
CPT/HCPCS: 73721